=== PATIENT | female | born 1960 | race Caucasian/White ===

== ENCOUNTER 2016-12-26 16:47 | Inpatient (IN) ==
[2016-12-26] MEDS ORDERED: SODIUM CHLORIDE 0.9% 500 ML IV STA (18:06)
[2016-12-26] MEDS ORDERED: ONDANSETRON 4 MG/2 ML VIAL IV STA ×3 (18:06→18:38)
[2016-12-26 18:17] LABS: Hematocrit 26.4 VOL% (35.7-47.0); Hemoglobin 9.3 GM/DL (12.0-16.0); Immature Granulocytes % 1.4 %; Immature Granulocytes Absolute 0.01 #; Lymphocytes # 0.6 10*3/uL (1.4-4.0); Lymphocytes % 82.6 % (21.3-54.2); Mean Corpuscular HGB Conc 35.2 GM/DL (32-36); Mean Corpuscular Hemoglobin 34 PG (27-34); Mean Corpuscular Volume 97.8 FL (87-102); Monocytes % 5.8 % (1.7-12.7); Neutrophils # 0.1 10*3/uL (1.4-7.4); Neutrophils % 10.2 % (38.7-73.9); Red Cell Distribution Width 18.6 % (9.3-17.3)
[2016-12-26 18:19] LABS: INR 0.9; Platelet Count 35 T/CUMM (130-400); White Blood Count 0.7 T/CUMM (4-12)
[2016-12-26] MEDS ORDERED: MEPERIDINE 25 MG/1 ML VIAL IV STA ×2 (18:35→18:37)
[2016-12-26 18:37] LABS: Alanine Aminotransferase 26 U/L (13-56); Albumin 3.8 G/DL (3.4-5.0); Alkaline Phosphatase 152 U/L (45-117); Aspartate Amino Transferase 15 U/L (0-37); Blood Urea Nitrogen 17 MG/DL (7-18); Calcium 9.1 MG/DL (8.5-10.1); Free T4 (Free Thyroxine) 1.13 NG/DL (0.76-1.46); Glucose 87 MG/DL (74-106); Magnesium 2.2 MG/DL (1.8-2.4); Osmolality,Calculated 277.5 MOS/KG (273-304); Potassium 3.7 MMOL/L (3.5-5.1); Sodium 139 MMOL/L (136-145); Total Protein 7.5 G/DL (6.4-8.3); Troponin I Only < 0.015 NG/ML (0.00-0.045)
[2016-12-26] MEDS ORDERED: MEPERIDINE 25 MG/1 ML VIAL ONE (18:45)
[2016-12-26] MEDS ORDERED: ONDANSETRON 4 MG/2 ML VIAL ONE (18:45)
[2016-12-26 19:20] LABS: Sedimentation Rate-Westergren 105 MM/HR (0-30)
[2016-12-26 19:27] LABS: Band Neutrophils 1 % (0-10); Eosinophils 1 % (0-10); Lymphocytes 84 % (20-55); Segmented Neutrophils 10 % (50-85); Total Cells Counted 100
[2016-12-26 19:28] LABS: Platelet Estimate Decreased; Polychromasia Few
[2016-12-26 19:49] LABS: Lactic Acid 0.5 MMOL/L (0.4-2.0)
[2016-12-26] MEDS ORDERED: DEXTROSE 50% 25 GM/50 ML VIAL IV PRN (20:06)
[2016-12-26] MEDS ORDERED: GLUCAGON 1 MG VIAL IM PRN (20:06)
[2016-12-26] MEDS ORDERED: ONDANSETRON 4 MG/2 ML VIAL IV PRN (20:06)
[2016-12-26] MEDS ORDERED: FUROSEMIDE 20 MG TABLET PO PRN (20:18)
[2016-12-26] MEDS: clonazePAM 0.5 MG TABLET PO SCH (22:05)
[2016-12-26] MEDS: ACETAMINOPHEN 325 MG TABLET PO PRN (22:34)
[2016-12-26] MEDS: MEROPENEM 1,000 MG in SYRINGE 1 EACH IV SCH (22:36)
[2016-12-26] MEDS: INSULIN LISPRO 100 UNIT/ML SUBCUT SCH (22:43)
[2016-12-26 23:04] LABS: Apearance,Urine CLEAR (Clear); Bilirubin,Urine Negative (Negative); Blood, Urine Large mg/dL (Negative); Glucose,Urine (UA) >=500 mg/dL (Negative); Ketones,Urine 5 mg/dL (Negative); Nitrite,Urine Negative (Negative); Protein,Urine Negative; RBC,Urine 7 /HPF (0-4); Squamous Epithelial Cell,Urine Occasional /HPF (0-10); Urine Color Straw (Yellow); Urine Specific Gravity 1.005 (1.001-1.035); WBC,Urine <1 /HPF (0-6)
[2016-12-26 23:05] LABS: Barbiturates Screen,Urine Negative (Negative); Benzodiazepines Screen,Urine Negative (Negative); Cannabinoid Screen,Urine Negative (Negative); Opiate Screen,Urine Negative (Negative); Phencyclidine Screen,Urine Negative (Negative)
[2016-12-27] MEDS: ACETAMINOPHEN 325 MG TABLET PO PRN (03:33)
[2016-12-27 05:56] LABS: Hematocrit 23.8 VOL% (35.7-47.0); Hemoglobin 8.4 GM/DL (12.0-16.0); Immature Granulocytes % 1.3 %; Immature Granulocytes Absolute 0.01 #; Lymphocytes # 0.7 10*3/uL (1.4-4.0); Lymphocytes % 83.8 % (21.3-54.2); Mean Corpuscular HGB Conc 35.3 GM/DL (32-36); Mean Corpuscular Hemoglobin 34 PG (27-34); Mean Corpuscular Volume 97.1 FL (87-102); Mean Platelet Volume 12.1 FL (9.6-12.0); Monocytes # 0.1 10*3/uL (0.11-0.8); Monocytes % 7.5 % (1.7-12.7); Neutrophils # 0.1 10*3/uL (1.4-7.4); Neutrophils % 7.4 % (38.7-73.9); Red Blood Count 2.45 MC/CUMM (3.8-5.5); Red Cell Distribution Width 18.6 % (9.3-17.3)
[2016-12-27 05:57] LABS: Hematocrit 23.4 VOL% (35.7-47.0); Hemoglobin 8.4 GM/DL (12.0-16.0); Immature Granulocytes % 2.6 %; Immature Granulocytes Absolute 0.02 #; Lymphocytes # 0.7 10*3/uL (1.4-4.0); Lymphocytes % 83.3 % (21.3-54.2); Mean Corpuscular HGB Conc 35.9 GM/DL (32-36); Mean Corpuscular Hemoglobin 35 PG (27-34); Mean Corpuscular Volume 97.1 FL (87-102); Mean Platelet Volume 12.3 FL (9.6-12.0); Monocytes # 0.1 10*3/uL (0.11-0.8); Monocytes % 6.4 % (1.7-12.7); Neutrophils # 0.1 10*3/uL (1.4-7.4); Neutrophils % 7.7 % (38.7-73.9); Red Blood Count 2.41 MC/CUMM (3.8-5.5); Red Cell Distribution Width 18.5 % (9.3-17.3)
[2016-12-27] MEDS ORDERED: LEVOTHYROXINE 200 MCG TABLET PO SCH (06:00)
[2016-12-27 06:17] LABS: White Blood Count 0.8 T/CUMM (4-12)
[2016-12-27 06:18] LABS: Platelet Count 29 T/CUMM (130-400)
[2016-12-27] MEDS: LEVOTHYROXINE 137 MCG TABLET PO SCH (06:23)
[2016-12-27] MEDS: MEROPENEM 1,000 MG in SYRINGE 1 EACH IV SCH ×3 (06:24→21:18)
[2016-12-27 06:38] LABS: Platelet Count 28 T/CUMM (130-400); White Blood Count 0.8 T/CUMM (4-12)
[2016-12-27 06:46] LABS: Albumin 3.4 G/DL (3.4-5.0); Bilirubin,Total 0.8 MG/DL (0.2-1.0); Calcium 8.5 MG/DL (8.5-10.1); Giant Platelets Few; Hypochromasia 1+; Lymphocytes 100 % (20-55); Osmolality,Calculated 281.1 MOS/KG (273-304); Ovalocytes Slight; Platelet Estimate Decreased; Potassium 3.8 MMOL/L (3.5-5.1); Total Cells Counted 100; Total Protein 6.4 G/DL (6.4-8.3)
[2016-12-27 06:49] LABS: Giant Platelets Few; Hypochromasia 1+; Lymphocytes 90 % (20-55); Microcytosis Slight; Platelet Estimate Decreased; Segmented Neutrophils 10 % (50-85); Total Cells Counted 100
[2016-12-27] MEDS ORDERED: SODIUM CHLORIDE 0.9% 1,000 ML IV PRN (08:30)
[2016-12-27] MEDS ORDERED: GLIMEPIRIDE 4 MG TABLET PO SCH (09:00)
[2016-12-27] MEDS ORDERED: DIAZEPAM 5 MG TABLET PO ONE (09:23)
[2016-12-27] MEDS: INSULIN LISPRO 100 UNIT/ML SUBCUT SCH ×4 (09:42→22:16)
[2016-12-27] MEDS: ACETAMINOPHEN/CODEINE 120-12 MG/5 ML 12.5 ML UDCUP PO PRN ×2 (09:47→21:37)
[2016-12-27] MEDS ORDERED: HEPARIN 5,000 UNIT/1 ML VIAL ONE (10:38)
[2016-12-27] MEDS: clonazePAM 0.5 MG TABLET PO SCH (21:17)
[2016-12-28] MEDS: ACETAMINOPHEN 325 MG TABLET PO PRN (03:57)
[2016-12-28 04:30] LABS: Hematocrit 25.8 VOL% (35.7-47.0); Hemoglobin 9.2 GM/DL (12.0-16.0); Immature Granulocytes % 1.1 %; Immature Granulocytes Absolute 0.01 #; Lymphocytes # 0.8 10*3/uL (1.4-4.0); Lymphocytes % 86.2 % (21.3-54.2); Mean Corpuscular HGB Conc 35.7 GM/DL (32-36); Mean Corpuscular Hemoglobin 35 PG (27-34); Mean Corpuscular Volume 97.7 FL (87-102); Mean Platelet Volume 11.5 FL (9.6-12.0); Monocytes # 0.1 10*3/uL (0.11-0.8); Monocytes % 6.4 % (1.7-12.7); Neutrophils # 0.1 10*3/uL (1.4-7.4); Neutrophils % 6.3 % (38.7-73.9); Red Blood Count 2.64 MC/CUMM (3.8-5.5); Red Cell Distribution Width 18.5 % (9.3-17.3)
[2016-12-28 05:01] LABS: Calcium 8.6 MG/DL (8.5-10.1); Osmolality,Calculated 283.1 MOS/KG (273-304); Platelet Count 48 T/CUMM (130-400); Potassium 4.1 MMOL/L (3.5-5.1)
[2016-12-28 05:02] LABS: White Blood Count 0.9 T/CUMM (4-12)
[2016-12-28 05:08] LABS: Total Protein 6.9 G/DL (6.4-8.3)
[2016-12-28 05:37] LABS: Hypochromasia 1+; Lymphocytes 100 % (20-55); Ovalocytes Slight; Platelet Estimate Decreased; Total Cells Counted 100
[2016-12-28 05:38] LABS: Microcytosis Slight
[2016-12-28] MEDS: LEVOTHYROXINE 137 MCG TABLET PO SCH (06:04)
[2016-12-28] MEDS: MEROPENEM 1,000 MG in SYRINGE 1 EACH IV SCH ×3 (06:04→21:55)
[2016-12-28] MEDS: INSULIN LISPRO 100 UNIT/ML SUBCUT SCH ×4 (08:11→23:20)
[2016-12-28] MEDS ORDERED: BISACODYL 5 MG TABLET PO PRN (09:54)
[2016-12-28] MEDS: ACETAMINOPHEN/CODEINE 120-12 MG/5 ML 12.5 ML UDCUP PO PRN (21:46)
[2016-12-28] MEDS: clonazePAM 0.5 MG TABLET PO SCH (21:48)
[2016-12-29] MEDS: MEROPENEM 1,000 MG in SYRINGE 1 EACH IV SCH (06:17)
[2016-12-29] MEDS: LEVOTHYROXINE 137 MCG TABLET PO SCH (06:17)
[2016-12-29 06:38] LABS: Hematocrit 24.1 VOL% (35.7-47.0); Hemoglobin 8.6 GM/DL (12.0-16.0); Immature Granulocytes % 1.1 %; Immature Granulocytes Absolute 0.01 #; Lymphocytes # 0.8 10*3/uL (1.4-4.0); Lymphocytes % 89.4 % (21.3-54.2); Mean Corpuscular HGB Conc 35.7 GM/DL (32-36); Mean Corpuscular Hemoglobin 35 PG (27-34); Mean Corpuscular Volume 96.8 FL (87-102); Mean Platelet Volume 11.2 FL (9.6-12.0); Monocytes % 3.2 % (1.7-12.7); Neutrophils # 0.1 10*3/uL (1.4-7.4); Neutrophils % 6.3 % (38.7-73.9); Platelet Count 53 T/CUMM (130-400); Red Blood Count 2.49 MC/CUMM (3.8-5.5); Red Cell Distribution Width 18.3 % (9.3-17.3)
[2016-12-29 06:45] LABS: White Blood Count 0.9 T/CUMM (4-12)
[2016-12-29 07:14] LABS: Immuno Free Light Chain Kappa 2.62 MG/DL (0.33-1.94); Immuno Free Light Chain Lambda 1.86 MG/DL (0.57-2.63); Immuno Free Light Chain Ratio 1.41 MG/DL (0.26-1.65)
[2016-12-29] MEDS: INSULIN LISPRO 100 UNIT/ML SUBCUT SCH (08:09)
[2016-12-29 08:14] LABS: Lymphocytes 88 % (20-55); Total Cells Counted 100
[2016-12-29 08:15] LABS: Hypochromasia 2+; Microcytosis 2+; Platelet Estimate Decreased
[2016-12-29 08:26] LABS: Albumin (SPE) 4.2 G/DL (3.2-5.3); Alpha 1 (SPE) 0.3 G/DL (0.1-0.4); Alpha 1 (SPE) Rel % 3.9 %; Alpha 2 (SPE) 0.8 G/DL (0.4-1.0); Alpha 2 (SPE) Rel % 11.7 %; Beta (SPE) 0.8 G/DL (0.5-1.1); Beta (SPE) Rel % 12.2 %; Gamma (SPE) 0.8 G/DL (0.7-1.7); Gamma (SPE) Rel % 11.2 %; Total Protein (Chem) 6.9 G/DL (6.4-8.3)
[2016-12-29] MEDS ORDERED: NYSTATIN CREAM 15 GM TUBE TOP SCH (09:00)
[2016-12-29] MEDS ORDERED: FLUCONAZOLE 100 MG TABLET PO SCH (09:00)
[2016-12-29 11:51] LABS: Folate 10.1 NG/ML (5.4-24.0); HIV Antigen/Antibody Result Nonreactive (Nonreactive)
[2016-12-29 12:47] VITALS: BP 129/64
== END 2016-12-29 11:55 | disposition home or self-care (01) | DRG 835 ==
LOC: N.ED 16:47 → N.EDINP 18:40 → SUATTDRO 18:40 → N.4E 19:43
PROVIDERS: ADMIT Internal Medicine

== ENCOUNTER 2016-12-30 08:18 | Inpatient (IN) ==
[2016-12-30] MEDS ORDERED: BENZTROPINE 2 MG/2 ML AMP IV PRN (08:35)
[2016-12-30] MEDS ORDERED: MYLANTA/LIDO VISC 2:1 300 ML BOTTLE SWISH/SWAL PRN (08:35)
[2016-12-30] MEDS ORDERED: chlorproMAZINE INJ 50 MG in SODIUM CHLORIDE 0.9% 100 ML IV PRN (08:35)
[2016-12-30] MEDS ORDERED: ALUMINUM/MAGNES/SIMETH MAX STR 30 ML UDCUP PO PRN (08:35)
[2016-12-30] MEDS ORDERED: MYLANTA/LIDO VISC 2:1 300 ML BOTTLE SWISH/SPIT PRN (08:35)
[2016-12-30] MEDS ORDERED: LACTULOSE 20 GM/30 ML UDCUP PO PRN (08:35)
[2016-12-30] MEDS ORDERED: guaiFENesin 200 MG/10 ML UDCUP PO PRN (08:35)
[2016-12-30] MEDS ORDERED: chlorproMAZINE INJ 25 MG in SODIUM CHLORIDE 0.9% 100 ML IV PRN (08:35)
[2016-12-30] MEDS ORDERED: LOPERAMIDE 2 MG CAPSULE PO PRN ×2 (08:35)
[2016-12-30] MEDS ORDERED: ALPRAZolam 0.25 MG TABLET PO PRN (08:35)
[2016-12-30] MEDS ORDERED: MAGNESIUM HYDROXIDE SUSP 30 ML UDCUP PO PRN (08:35)
[2016-12-30] MEDS ORDERED: diphenhydrAMINE CAP 25 MG CAPSULE PO PRN (08:35)
[2016-12-30] MEDS ORDERED: chlorproMAZINE 25 MG TABLET PO PRN (08:35)
[2016-12-30] MEDS ORDERED: TEMAZEPAM 7.5 MG CAPSULE PO PRN (08:35)
[2016-12-30 09:14] LABS: Hematocrit 23.3 VOL% (35.7-47.0); Hemoglobin 8.3 GM/DL (12.0-16.0); Immature Granulocytes % 1.6 %; Immature Granulocytes Absolute 0.01 #; Lymphocytes # 0.5 10*3/uL (1.4-4.0); Lymphocytes % 78.1 % (21.3-54.2); Mean Corpuscular HGB Conc 35.6 GM/DL (32-36); Mean Corpuscular Hemoglobin 35 PG (27-34); Mean Corpuscular Volume 97.9 FL (87-102); Monocytes # 0.1 10*3/uL (0.11-0.8); Monocytes % 10.9 % (1.7-12.7); Neutrophils # 0.1 10*3/uL (1.4-7.4); Neutrophils % 9.4 % (38.7-73.9); Platelet Count 48 T/CUMM (130-400); Red Blood Count 2.38 MC/CUMM (3.8-5.5); Red Cell Distribution Width 18.3 % (9.3-17.3)
[2016-12-30 09:35] LABS: White Blood Count 0.6 T/CUMM (4-12)
[2016-12-30 09:36] LABS: Fibrinogen Quant Value 204 MG% (200-400); INR 1.1; PT Patient Result 11.4 SECS; Partial Thromboplastin Time 25.8 SECS (0-40)
[2016-12-30 09:40] LABS: Lymphocytes 82 % (20-55); Nucleated Red Blood Cells 4 (0-5); Segmented Neutrophils 14 % (50-85); Total Cells Counted 100
[2016-12-30 09:42] LABS: Platelet Estimate Decreased
[2016-12-30 09:43] LABS: Macrocytosis 1+
[2016-12-30 10:03] LABS: Albumin 3.9 G/DL (3.4-5.0); Bilirubin,Total 0.6 MG/DL (0.2-1.0); Osmolality,Calculated 278.8 MOS/KG (273-304); Total Protein 7.4 G/DL (6.4-8.3); Uric Acid 3.3 MG/DL (2.6-6.0)
[2016-12-30] MEDS ORDERED: PALONOSETRON 0.25 MG/5 ML VIAL IV ONE (10:04)
[2016-12-30] MEDS ORDERED: FUROSEMIDE 20 MG TABLET PO PRN (10:07)
[2016-12-30] MEDS: DEXAMETHASONE IV SCH (11:40)
[2016-12-30] MEDS: SODIUM CHLORIDE 0.9% IV SCH (11:40)
[2016-12-30] MEDS: TRETINOIN 10 MG CAPSULE PO SCH ×2 (11:40→20:36)
[2016-12-30] MEDS: DEXTROSE 5% IV SCH (13:04)
[2016-12-30] MEDS: ARSENIC TRIOXIDE IV SCH (13:04)
[2016-12-30 16:15] LABS: Apearance,Urine CLEAR (Clear); Bilirubin,Urine Negative (Negative); Blood, Urine Moderate mg/dL (Negative); Glucose,Urine (UA) >=500 mg/dL (Negative); Ketones,Urine Negative (Negative); Mucus,Urine Occasional /LPF (Occasional); Nitrite,Urine Negative (Negative); Protein,Urine Negative; RBC,Urine 31 /HPF (0-4); Squamous Epithelial Cell,Urine Occasional /HPF (0-10); Urine Color Straw (Yellow); Urine Specific Gravity 1.005 (1.001-1.035); Urine Urobilinogen < 2.0 EU/DL (0.2-1.0); WBC,Urine 1 /HPF (0-6)
[2016-12-30] MEDS: LEVOFLOXACIN 500 MG TABLET PO SCH (17:30)
[2016-12-30] MEDS: FLUCONAZOLE 100 MG TABLET PO SCH (17:31)
[2016-12-30] MEDS: ESZOPICLONE 3 MG PO SCH (20:31)
[2016-12-30] MEDS: clonazePAM 0.5 MG TABLET PO SCH (20:31)
[2016-12-30] MEDS: ZALEPLON 5 MG CAPSULE PO SCH (20:32)
[2016-12-31] MEDS: ACETAMINOPHEN 325 MG TABLET PO PRN (01:19)
[2016-12-31] MEDS: ONDANSETRON 4 MG/2 ML VIAL IV PRN ×3 (01:41→18:21)
[2016-12-31] MEDS: PROMETHAZINE INJ 25 MG in SODIUM CHLORIDE 0.9% 50 ML IV PRN ×2 (01:56→19:40)
[2016-12-31] MEDS: traMADol 50 MG TABLET PO PRN ×3 (02:03→16:52)
[2016-12-31 03:24] LABS: Hematocrit 24.9 VOL% (35.7-47.0); Immature Granulocytes % 4.5 %; Immature Granulocytes Absolute 0.05 #; Lymphocytes # 0.9 10*3/uL (1.4-4.0); Lymphocytes % 76.6 % (21.3-54.2); Mean Corpuscular HGB Conc 36.1 GM/DL (32-36); Mean Corpuscular Hemoglobin 35 PG (27-34); Mean Corpuscular Volume 96.5 FL (87-102); Mean Platelet Volume 11.7 FL (9.6-12.0); Monocytes # 0.1 10*3/uL (0.11-0.8); Monocytes % 8.1 % (1.7-12.7); NRBC # 0.02 10*3/uL; Neutrophils # 0.1 10*3/uL (1.4-7.4); Neutrophils % 10.8 % (38.7-73.9); Red Blood Count 2.58 MC/CUMM (3.8-5.5); White Blood Count 1.1 T/CUMM (4-12)
[2016-12-31 03:27] LABS: Platelet Count 41 T/CUMM (130-400)
[2016-12-31 03:47] LABS: Calcium 9.1 MG/DL (8.5-10.1); Potassium 3.9 MMOL/L (3.5-5.1)
[2016-12-31 05:31] LABS: Lymphocytes 70 % (20-55); Platelet Estimate Decreased; Segmented Neutrophils 30 % (50-85); Total Cells Counted 100
[2016-12-31] MEDS: DEXAMETHASONE IV SCH (08:28)
[2016-12-31] MEDS: LEVOFLOXACIN 500 MG TABLET PO SCH (08:28)
[2016-12-31] MEDS: LEVOTHYROXINE 137 MCG TABLET PO SCH (08:28)
[2016-12-31] MEDS: SODIUM CHLORIDE 0.9% IV SCH (08:28)
[2016-12-31] MEDS: FLUCONAZOLE 100 MG TABLET PO SCH (08:28)
[2016-12-31] MEDS ORDERED: FOSAPREPITANT 150 MG in SODIUM CHLORIDE 0.9% 100 ML IV ONE (09:09)
[2016-12-31] MEDS ORDERED: SODIUM CHLORIDE 0.9% 1,000 ML IV PRN (09:14)
[2016-12-31] MEDS: SODIUM CHLORIDE 0.45% 1,000 ML IV SCH (10:54)
[2016-12-31] MEDS: TRETINOIN 10 MG CAPSULE PO SCH ×2 (10:54→21:04)
[2016-12-31] MEDS: DEXTROSE 5% IV SCH ×2 (11:09→11:42)
[2016-12-31] MEDS: ARSENIC TRIOXIDE IV SCH ×2 (11:09→11:42)
[2016-12-31] MEDS: clonazePAM 0.5 MG TABLET PO SCH (21:02)
[2016-12-31] MEDS: ESZOPICLONE 3 MG PO SCH (21:03)
[2016-12-31] MEDS: ZALEPLON 5 MG CAPSULE PO SCH (21:07)
[2017-01-01 08:11] LABS: Hematocrit 22.7 VOL% (35.7-47.0); Hemoglobin 8.2 GM/DL (12.0-16.0); Immature Granulocytes % 9.8 %; Immature Granulocytes Absolute 0.08 #; Lymphocytes # 0.5 10*3/uL (1.4-4.0); Lymphocytes % 59.8 % (21.3-54.2); Mean Corpuscular HGB Conc 36.1 GM/DL (32-36); Mean Corpuscular Hemoglobin 35 PG (27-34); Mean Platelet Volume 10.8 FL (9.6-12.0); Monocytes # 0.1 10*3/uL (0.11-0.8); Monocytes % 13.4 % (1.7-12.7); NRBC # 0.04 10*3/uL; Neutrophils # 0.1 10*3/uL (1.4-7.4); Platelet Count 62 T/CUMM (130-400); Red Cell Distribution Width 18.5 % (9.3-17.3); White Blood Count 0.8 T/CUMM (4-12)
[2017-01-01 08:18] LABS: Red Blood Count 2.34 MC/CUMM (3.8-5.5)
[2017-01-01 08:43] LABS: Albumin 3.7 G/DL (3.4-5.0); Bilirubin,Total 0.9 MG/DL (0.2-1.0); Calcium 9.1 MG/DL (8.5-10.1); Magnesium 2.1 MG/DL (1.8-2.4); Osmolality,Calculated 279.7 MOS/KG (273-304); Potassium 3.9 MMOL/L (3.5-5.1); Total Protein 7.2 G/DL (6.4-8.3)
[2017-01-01 08:53] LABS: Hypochromasia 1+; Lymphocytes 80 % (20-55); Platelet Estimate Decreased; Total Cells Counted 100
[2017-01-01 08:54] LABS: Microcytosis Slight
[2017-01-01] MEDS: traMADol 50 MG TABLET PO PRN (09:40)
[2017-01-01] MEDS: LEVOTHYROXINE 137 MCG TABLET PO SCH (09:41)
[2017-01-01] MEDS: LEVOFLOXACIN 500 MG TABLET PO SCH (09:41)
[2017-01-01] MEDS: FLUCONAZOLE 100 MG TABLET PO SCH (09:41)
[2017-01-01] MEDS: TRETINOIN 10 MG CAPSULE PO SCH ×2 (09:41→21:00)
[2017-01-01] MEDS: SODIUM CHLORIDE 0.9% IV SCH (09:42)
[2017-01-01] MEDS: DEXAMETHASONE IV SCH (09:42)
[2017-01-01] MEDS ORDERED: PALONOSETRON 0.25 MG/5 ML VIAL IV ONE (10:11)
[2017-01-01] MEDS: SODIUM CHLORIDE 0.45% 1,000 ML IV SCH (10:16)
[2017-01-01] MEDS: ARSENIC TRIOXIDE IV SCH (10:43)
[2017-01-01] MEDS: DEXTROSE 5% IV SCH (10:43)
[2017-01-01] MEDS: ZALEPLON 5 MG CAPSULE PO SCH (20:58)
[2017-01-01] MEDS: BISACODYL 5 MG TABLET PO PRN (20:58)
[2017-01-01] MEDS: clonazePAM 0.5 MG TABLET PO SCH (20:59)
[2017-01-01] MEDS: ESZOPICLONE 3 MG PO SCH (20:59)
[2017-01-02 04:43] LABS: Hematocrit 22.4 VOL% (35.7-47.0); Hemoglobin 7.9 GM/DL (12.0-16.0); Immature Granulocytes % 1.1 %; Immature Granulocytes Absolute 0.02 #; Lymphocytes # 0.7 10*3/uL (1.4-4.0); Lymphocytes % 37.2 % (21.3-54.2); Mean Corpuscular HGB Conc 35.3 GM/DL (32-36); Mean Corpuscular Hemoglobin 35 PG (27-34); Mean Corpuscular Volume 98.2 FL (87-102); Mean Platelet Volume 10.8 FL (9.6-12.0); Monocytes # 0.3 10*3/uL (0.11-0.8); Monocytes % 14.4 % (1.7-12.7); NRBC # 0.11 10*3/uL; Neutrophils # 0.9 10*3/uL (1.4-7.4); Neutrophils % 47.3 % (38.7-73.9); Platelet Count 46 T/CUMM (130-400); Red Blood Count 2.28 MC/CUMM (3.8-5.5); Red Cell Distribution Width 18.6 % (9.3-17.3); White Blood Count 1.8 T/CUMM (4-12)
[2017-01-02 05:12] LABS: Band Neutrophils 10 % (0-10); Lymphocytes 30 % (20-55); Metamyelocytes 20 %; Myelocytes 20 %; Nucleated Red Blood Cells 1 (0-5); Segmented Neutrophils 10 % (50-85); Total Cells Counted 100
[2017-01-02 05:13] LABS: Anisocytosis 1+; Platelet Estimate Decreased
[2017-01-02] MEDS: LEVOTHYROXINE 137 MCG TABLET PO SCH (06:44)
[2017-01-02] MEDS ORDERED: SODIUM CHLORIDE 0.9% 1,000 ML IV PRN (07:50)
[2017-01-02] MEDS ORDERED: ARSENIC TRIOXIDE IV SCH (09:00)
[2017-01-02] MEDS ORDERED: DEXTROSE 5% IV SCH (09:00)
[2017-01-02] MEDS: SODIUM CHLORIDE 0.45% 1,000 ML IV SCH (09:53)
[2017-01-02] MEDS: FLUCONAZOLE 100 MG TABLET PO SCH (09:54)
[2017-01-02] MEDS: LEVOFLOXACIN 500 MG TABLET PO SCH (09:54)
[2017-01-02] MEDS: TRETINOIN 10 MG CAPSULE PO SCH ×2 (09:54→21:26)
[2017-01-02] MEDS: BISACODYL 5 MG TABLET PO PRN (09:55)
[2017-01-02] MEDS: POLYETHYLENE GLYCOL POWDER 17 GM PACK PO SCH (09:55)
[2017-01-02] MEDS: SODIUM CHLORIDE 0.9% IV SCH (09:55)
[2017-01-02] MEDS: DEXAMETHASONE IV SCH (09:55)
[2017-01-02] MEDS: ESZOPICLONE 3 MG PO SCH (21:23)
[2017-01-02] MEDS: ZALEPLON 5 MG CAPSULE PO SCH (21:26)
[2017-01-02] MEDS: clonazePAM 0.5 MG TABLET PO SCH (21:30)
[2017-01-03 05:30] LABS: Basophils % 0.2 % (0.0-0.8); Hematocrit 27.4 VOL% (35.7-47.0); Hemoglobin 9.8 GM/DL (12.0-16.0); Immature Granulocytes % 8.2 %; Immature Granulocytes Absolute 0.48 #; Lymphocytes # 1.1 10*3/uL (1.4-4.0); Mean Corpuscular HGB Conc 35.8 GM/DL (32-36); Mean Corpuscular Hemoglobin 34 PG (27-34); Mean Corpuscular Volume 94.5 FL (87-102); Mean Platelet Volume 11.8 FL (9.6-12.0); Monocytes # 0.2 10*3/uL (0.11-0.8); Monocytes % 3.3 % (1.7-12.7); NRBC # 0.27 10*3/uL; Neutrophils # 4.1 10*3/uL (1.4-7.4); Neutrophils % 69.3 % (38.7-73.9); Red Cell Distribution Width 18.6 % (9.3-17.3); White Blood Count 5.8 T/CUMM (4-12)
[2017-01-03 05:42] LABS: Platelet Count 35 T/CUMM (130-400)
[2017-01-03 05:50] LABS: Albumin 3.3 G/DL (3.4-5.0); Bilirubin,Total 0.4 MG/DL (0.2-1.0); Calcium 8.2 MG/DL (8.5-10.1); Potassium 3.8 MMOL/L (3.5-5.1); Total Protein 6.3 G/DL (6.4-8.3)
[2017-01-03] MEDS: LEVOTHYROXINE 137 MCG TABLET PO SCH (06:39)
[2017-01-03 07:01] LABS: Lymphocytes 36 % (20-55); Metamyelocytes 1 %; Myelocytes 16 %; Nucleated Red Blood Cells 5 (0-5); Promyelocytes 4 %; Segmented Neutrophils 9 % (50-85); Total Cells Counted 100
[2017-01-03 07:03] LABS: Hypochromasia 1+; Platelet Estimate Decreased
[2017-01-03] MEDS ORDERED: FUROSEMIDE 20 MG/2 ML VIAL IV ONE (08:05)
[2017-01-03] MEDS: SODIUM CHLORIDE 0.9% IV SCH (10:02)
[2017-01-03] MEDS: DEXAMETHASONE IV SCH (10:02)
[2017-01-03] MEDS: LEVOFLOXACIN 500 MG TABLET PO SCH (10:03)
[2017-01-03] MEDS: TRETINOIN 10 MG CAPSULE PO SCH ×2 (10:03→21:44)
[2017-01-03] MEDS: BISACODYL 5 MG TABLET PO PRN (10:03)
[2017-01-03] MEDS: POLYETHYLENE GLYCOL POWDER 17 GM PACK PO SCH (10:03)
[2017-01-03] MEDS: SODIUM CHLORIDE 0.45% 1,000 ML IV SCH (10:04)
[2017-01-03] MEDS: FLUCONAZOLE 100 MG TABLET PO SCH (10:04)
[2017-01-03] MEDS: DEXTROSE 5% IV SCH (13:57)
[2017-01-03] MEDS: ARSENIC TRIOXIDE IV SCH (13:57)
[2017-01-03] MEDS: ESZOPICLONE 3 MG PO SCH (21:42)
[2017-01-03] MEDS: clonazePAM 0.5 MG TABLET PO SCH (21:43)
[2017-01-03] MEDS: ZALEPLON 5 MG CAPSULE PO SCH (21:47)
[2017-01-04 04:45] LABS: Basophils # 0.1 10*3/uL (0.0-0.2); Basophils % 0.3 % (0.0-0.8); Hematocrit 28.5 VOL% (35.7-47.0); Hemoglobin 10.3 GM/DL (12.0-16.0); Immature Granulocytes % 9.8 %; Immature Granulocytes Absolute 1.66 #; Lymphocytes # 1.8 10*3/uL (1.4-4.0); Lymphocytes % 10.9 % (21.3-54.2); Mean Corpuscular HGB Conc 36.1 GM/DL (32-36); Mean Corpuscular Hemoglobin 34 PG (27-34); Mean Corpuscular Volume 94.7 FL (87-102); Monocytes # 0.5 10*3/uL (0.11-0.8); Neutrophils # 12.8 10*3/uL (1.4-7.4); Platelet Count 41 T/CUMM (130-400); Red Blood Count 3.01 MC/CUMM (3.8-5.5); Red Cell Distribution Width 18.7 % (9.3-17.3); White Blood Count 16.9 T/CUMM (4-12)
[2017-01-04 05:12] LABS: Calcium 8.3 MG/DL (8.5-10.1); Osmolality,Calculated 287.7 MOS/KG (273-304); Potassium 3.7 MMOL/L (3.5-5.1)
[2017-01-04 06:46] LABS: Band Neutrophils 3 % (0-10); Lymphocytes 53 % (20-55); Metamyelocytes 4 %; Myelocytes 17 %; Nucleated Red Blood Cells 4 (0-5); Promyelocytes 8 %; Segmented Neutrophils 3 % (50-85); Total Cells Counted 100
[2017-01-04 06:47] LABS: Platelet Estimate Decreased
[2017-01-04] MEDS ORDERED: FUROSEMIDE 20 MG/2 ML VIAL IV ONE (08:15)
[2017-01-04] MEDS: FLUCONAZOLE 100 MG TABLET PO SCH (10:12)
[2017-01-04] MEDS: LEVOTHYROXINE 137 MCG TABLET PO SCH (10:12)
[2017-01-04] MEDS: LEVOFLOXACIN 500 MG TABLET PO SCH (10:12)
[2017-01-04] MEDS: SODIUM CHLORIDE 0.45% 1,000 ML IV SCH (10:12)
[2017-01-04] MEDS: FOLIC ACID 1 MG TABLET PO SCH (10:13)
[2017-01-04] MEDS: TRETINOIN 10 MG CAPSULE PO SCH ×2 (10:13→20:56)
[2017-01-04] MEDS: POLYETHYLENE GLYCOL POWDER 17 GM PACK PO SCH (10:13)
[2017-01-04] MEDS: ARSENIC TRIOXIDE IV SCH (13:38)
[2017-01-04] MEDS: DEXTROSE 5% IV SCH (13:38)
[2017-01-04] MEDS: ESZOPICLONE 3 MG PO SCH (20:53)
[2017-01-04] MEDS: clonazePAM 0.5 MG TABLET PO SCH (20:55)
[2017-01-04] MEDS: ZALEPLON 5 MG CAPSULE PO SCH (20:55)
[2017-01-05] MEDS: ACETAMINOPHEN 325 MG TABLET PO PRN (03:13)
[2017-01-05 04:34] LABS: Basophils # 0.1 10*3/uL (0.0-0.2); Basophils % 0.4 % (0.0-0.8); Hematocrit 30.8 VOL% (35.7-47.0); Hemoglobin 10.7 GM/DL (12.0-16.0); Immature Granulocytes % 7.3 %; Lymphocytes # 3.6 10*3/uL (1.4-4.0); Lymphocytes % 11.5 % (21.3-54.2); Mean Corpuscular HGB Conc 34.7 GM/DL (32-36); Mean Corpuscular Hemoglobin 33 PG (27-34); Mean Corpuscular Volume 95.7 FL (87-102); Mean Platelet Volume 10.9 FL (9.6-12.0); Monocytes # 1.2 10*3/uL (0.11-0.8); Monocytes % 3.7 % (1.7-12.7); Neutrophils # 24.2 10*3/uL (1.4-7.4); Neutrophils % 77.1 % (38.7-73.9); Platelet Count 46 T/CUMM (130-400); Red Blood Count 3.22 MC/CUMM (3.8-5.5); Red Cell Distribution Width 19.1 % (9.3-17.3); White Blood Count 31.3 T/CUMM (4-12)
[2017-01-05 05:33] LABS: Albumin 3.3 G/DL (3.4-5.0); Calcium 8.4 MG/DL (8.5-10.1); Magnesium 2.1 MG/DL (1.8-2.4); Osmolality,Calculated 287.4 MOS/KG (273-304); Potassium 3.7 MMOL/L (3.5-5.1); Total Protein 6.4 G/DL (6.4-8.3)
[2017-01-05] MEDS: LEVOTHYROXINE 137 MCG TABLET PO SCH (06:17)
[2017-01-05] MEDS: SODIUM CHLORIDE 0.45% 1,000 ML IV SCH (06:18)
[2017-01-05 08:42] LABS: Band Neutrophils 2 % (0-10); Lymphocytes 25 % (20-55); Metamyelocytes 1 %; Myelocytes 30 %; Nucleated Red Blood Cells 1 (0-5); Segmented Neutrophils 7 % (50-85); Total Cells Counted 100
[2017-01-05 08:44] LABS: Hypochromasia 1+; Platelet Estimate Decreased
[2017-01-05] MEDS: FOLIC ACID 1 MG TABLET PO SCH (10:07)
[2017-01-05] MEDS: FLUCONAZOLE 100 MG TABLET PO SCH (10:08)
[2017-01-05] MEDS: LEVOFLOXACIN 500 MG TABLET PO SCH (10:08)
[2017-01-05] MEDS: POLYETHYLENE GLYCOL POWDER 17 GM PACK PO SCH (10:08)
[2017-01-05] MEDS: TRETINOIN 10 MG CAPSULE PO SCH ×2 (10:08→22:22)
[2017-01-05] MEDS: ARSENIC TRIOXIDE IV SCH (13:12)
[2017-01-05] MEDS: DEXTROSE 5% IV SCH (13:12)
[2017-01-05] MEDS ORDERED: DOXEPIN 25 MG CAPSULE PO SCH (21:00)
[2017-01-05] MEDS: ZALEPLON 5 MG CAPSULE PO SCH (22:23)
[2017-01-05] MEDS: clonazePAM 0.5 MG TABLET PO SCH (22:23)
[2017-01-05] MEDS: ESZOPICLONE 3 MG PO SCH (22:24)
[2017-01-06] MEDS: SODIUM CHLORIDE 0.45% 1,000 ML IV SCH (03:18)
[2017-01-06 03:21] LABS: Basophils # 0.2 10*3/uL (0.0-0.2); Basophils % 0.5 % (0.0-0.8); Hemoglobin 9.7 GM/DL (12.0-16.0); Immature Granulocytes % 9.8 %; Lymphocytes # 4.7 10*3/uL (1.4-4.0); Lymphocytes % 11.3 % (21.3-54.2); Mean Corpuscular HGB Conc 34.6 GM/DL (32-36); Mean Corpuscular Hemoglobin 33 PG (27-34); Mean Corpuscular Volume 96.6 FL (87-102); Mean Platelet Volume 10.3 FL (9.6-12.0); Monocytes # 0.8 10*3/uL (0.11-0.8); NRBC # 0.17 10*3/uL; Neutrophils % 76.4 % (38.7-73.9); Platelet Count 39 T/CUMM (130-400); Red Cell Distribution Width 19.1 % (9.3-17.3)
[2017-01-06 03:32] LABS: White Blood Count 41.8 T/CUMM (4-12)
[2017-01-06 03:55] LABS: Calcium 7.9 MG/DL (8.5-10.1); Magnesium 1.9 MG/DL (1.8-2.4); Osmolality,Calculated 284.8 MOS/KG (273-304); Potassium 3.5 MMOL/L (3.5-5.1)
[2017-01-06] MEDS: LEVOTHYROXINE 137 MCG TABLET PO SCH (06:33)
[2017-01-06 07:07] LABS: Band Neutrophils 3 % (0-10); Lymphocytes 40 % (20-55); Myelocytes 28 %; Nucleated Red Blood Cells 1 (0-5); Segmented Neutrophils 7 % (50-85); Total Cells Counted 100
[2017-01-06 07:08] LABS: Platelet Estimate Decreased
[2017-01-06 07:10] LABS: Hypochromasia 1+
[2017-01-06] MEDS: POLYETHYLENE GLYCOL POWDER 17 GM PACK PO SCH (08:22)
[2017-01-06] MEDS: LEVOFLOXACIN 500 MG TABLET PO SCH (08:22)
[2017-01-06] MEDS: BISACODYL 5 MG TABLET PO PRN (08:23)
[2017-01-06] MEDS: TRETINOIN 10 MG CAPSULE PO SCH ×2 (08:23→22:34)
[2017-01-06] MEDS: FLUCONAZOLE 100 MG TABLET PO SCH (08:23)
[2017-01-06] MEDS: FOLIC ACID 1 MG TABLET PO SCH (08:23)
[2017-01-06] MEDS: ARSENIC TRIOXIDE IV SCH (11:18)
[2017-01-06] MEDS: DEXTROSE 5% IV SCH (11:18)
[2017-01-06] MEDS: clonazePAM 0.5 MG TABLET PO SCH (21:59)
[2017-01-06] MEDS: DOXEPIN 25 MG CAPSULE PO SCH (22:04)
[2017-01-07] MEDS: ESZOPICLONE 3 MG PO SCH ×2 (00:53→22:12)
[2017-01-07] MEDS: ZALEPLON 5 MG CAPSULE PO SCH ×2 (00:54→21:00)
[2017-01-07] MEDS: SODIUM CHLORIDE 0.45% 1,000 ML IV SCH ×3 (02:22→22:12)
[2017-01-07 06:15] LABS: Basophils # 0.1 10*3/uL (0.0-0.2); Basophils % 0.1 % (0.0-0.8); Hematocrit 28.5 VOL% (35.7-47.0); Hemoglobin 9.7 GM/DL (12.0-16.0); Immature Granulocytes % 15.8 %; Immature Granulocytes Absolute 8.61 #; Lymphocytes # 4.8 10*3/uL (1.4-4.0); Lymphocytes % 8.8 % (21.3-54.2); Mean Corpuscular Hemoglobin 33 PG (27-34); Mean Corpuscular Volume 97.3 FL (87-102); Mean Platelet Volume 10.7 FL (9.6-12.0); Monocytes # 0.8 10*3/uL (0.11-0.8); Monocytes % 1.5 % (1.7-12.7); Neutrophils # 40.2 10*3/uL (1.4-7.4); Neutrophils % 73.8 % (38.7-73.9); Red Blood Count 2.93 MC/CUMM (3.8-5.5); Red Cell Distribution Width 19.7 % (9.3-17.3)
[2017-01-07 06:21] LABS: Platelet Count 36 T/CUMM (130-400); White Blood Count 54.4 T/CUMM (4-12)
[2017-01-07 06:33] LABS: Calcium 8.2 MG/DL (8.5-10.1); Magnesium 2.1 MG/DL (1.8-2.4); Osmolality,Calculated 287.4 MOS/KG (273-304); Potassium 3.8 MMOL/L (3.5-5.1)
[2017-01-07] MEDS: LEVOTHYROXINE 137 MCG TABLET PO SCH (06:40)
[2017-01-07 07:02] LABS: Anisocytosis 2+; Band Neutrophils 4 % (0-10); Lymphocytes 7 % (20-55); Macrocytosis 1+; Metamyelocytes 17 %; Microcytosis 1+; Myelocytes 6 %; Platelet Estimate Decreased; Segmented Neutrophils 54 % (50-85); Total Cells Counted 100
[2017-01-07] MEDS: FOLIC ACID 1 MG TABLET PO SCH (08:42)
[2017-01-07] MEDS: LEVOFLOXACIN 500 MG TABLET PO SCH (08:42)
[2017-01-07] MEDS: FLUCONAZOLE 100 MG TABLET PO SCH (08:42)
[2017-01-07] MEDS: TRETINOIN 10 MG CAPSULE PO SCH ×2 (08:42→21:25)
[2017-01-07] MEDS: POLYETHYLENE GLYCOL POWDER 17 GM PACK PO SCH (08:42)
[2017-01-07] MEDS: ARSENIC TRIOXIDE IV SCH (10:16)
[2017-01-07] MEDS: DEXTROSE 5% IV SCH (10:16)
[2017-01-07] MEDS: DOXEPIN 25 MG CAPSULE PO SCH (20:48)
[2017-01-07] MEDS: clonazePAM 0.5 MG TABLET PO SCH (20:48)
[2017-01-08] MEDS: SODIUM CHLORIDE 0.45% 1,000 ML IV SCH (04:34)
[2017-01-08 05:52] LABS: Basophils # 0.2 10*3/uL (0.0-0.2); Basophils % 0.3 % (0.0-0.8); Hemoglobin 9.7 GM/DL (12.0-16.0); Immature Granulocytes % 13.8 %; Immature Granulocytes Absolute 9.47 #; Lymphocytes # 4.8 10*3/uL (1.4-4.0); Mean Corpuscular HGB Conc 34.6 GM/DL (32-36); Mean Corpuscular Hemoglobin 34 PG (27-34); Mean Corpuscular Volume 97.9 FL (87-102); Mean Platelet Volume 12.3 FL (9.6-12.0); Monocytes # 2.2 10*3/uL (0.11-0.8); Monocytes % 3.3 % (1.7-12.7); NRBC # 0.08 10*3/uL; Neutrophils # 51.8 10*3/uL (1.4-7.4); Neutrophils % 75.6 % (38.7-73.9); Platelet Count 28 T/CUMM (130-400); Red Blood Count 2.86 MC/CUMM (3.8-5.5); Red Cell Distribution Width 19.7 % (9.3-17.3)
[2017-01-08 05:59] LABS: White Blood Count 68.6 T/CUMM (4-12)
[2017-01-08 06:15] LABS: Calcium 8.1 MG/DL (8.5-10.1); Magnesium 2.1 MG/DL (1.8-2.4); Osmolality,Calculated 283.5 MOS/KG (273-304); Potassium 4.1 MMOL/L (3.5-5.1)
[2017-01-08 06:42] LABS: Band Neutrophils 5 % (0-10); Hypochromasia 1+; Lymphocytes 29 % (20-55); Metamyelocytes 9 %; Microcytosis 1+; Myelocytes 12 %; Platelet Estimate Decreased; Segmented Neutrophils 12 % (50-85); Total Cells Counted 100
[2017-01-08] MEDS: LEVOTHYROXINE 137 MCG TABLET PO SCH (06:51)
[2017-01-08] MEDS ORDERED: FUROSEMIDE 20 MG/2 ML VIAL IV ONE ×2 (07:55→16:00)
[2017-01-08] MEDS ORDERED: SODIUM CHLORIDE 0.9% 1,000 ML IV PRN (08:01)
[2017-01-08] MEDS: FLUCONAZOLE 100 MG TABLET PO SCH (10:19)
[2017-01-08] MEDS: FOLIC ACID 1 MG TABLET PO SCH (10:19)
[2017-01-08] MEDS: LEVOFLOXACIN 500 MG TABLET PO SCH (10:19)
[2017-01-08] MEDS: POLYETHYLENE GLYCOL POWDER 17 GM PACK PO SCH (10:20)
[2017-01-08] MEDS: KETOROLAC 10 MG TABLET PO PRN ×2 (11:35→21:06)
[2017-01-08] MEDS: TRETINOIN 10 MG CAPSULE PO SCH ×2 (11:36→21:14)
[2017-01-08] MEDS: DEXTROSE 5% IV SCH (11:37)
[2017-01-08] MEDS: ARSENIC TRIOXIDE IV SCH (11:37)
[2017-01-08] MEDS: DOXEPIN 25 MG CAPSULE PO SCH (21:07)
[2017-01-08] MEDS: clonazePAM 0.5 MG TABLET PO SCH (21:07)
[2017-01-08] MEDS: ZALEPLON 5 MG CAPSULE PO SCH (21:11)
[2017-01-08] MEDS: ESZOPICLONE 3 MG PO SCH (21:11)
[2017-01-09] MEDS: SODIUM CHLORIDE 0.45% 1,000 ML IV SCH ×3 (04:03→18:03)
[2017-01-09 05:23] LABS: Basophils # 0.2 10*3/uL (0.0-0.2); Basophils % 0.3 % (0.0-0.8); Hematocrit 26.4 VOL% (35.7-47.0); Hemoglobin 9.2 GM/DL (12.0-16.0); Immature Granulocytes % 21.5 %; Immature Granulocytes Absolute 15.57 #; Lymphocytes # 4.4 10*3/uL (1.4-4.0); Lymphocytes % 6.1 % (21.3-54.2); Mean Corpuscular HGB Conc 34.8 GM/DL (32-36); Mean Corpuscular Hemoglobin 34 PG (27-34); Mean Corpuscular Volume 98.5 FL (87-102); Mean Platelet Volume 10.4 FL (9.6-12.0); Monocytes # 1.4 10*3/uL (0.11-0.8); Monocytes % 1.9 % (1.7-12.7); NRBC # 0.06 10*3/uL; Neutrophils # 50.7 10*3/uL (1.4-7.4); Neutrophils % 70.2 % (38.7-73.9); Platelet Count 52 T/CUMM (130-400); Red Blood Count 2.68 MC/CUMM (3.8-5.5); Red Cell Distribution Width 19.9 % (9.3-17.3)
[2017-01-09 05:32] LABS: White Blood Count 72.4 T/CUMM (4-12)
[2017-01-09 05:56] LABS: Albumin 2.9 G/DL (3.4-5.0); Band Neutrophils 16 % (0-10); Bilirubin,Total 0.4 MG/DL (0.2-1.0); Calcium 7.9 MG/DL (8.5-10.1); Lymphocytes 12 % (20-55); Magnesium 2.3 MG/DL (1.8-2.4); Metamyelocytes 9 %; Myelocytes 9 %; Osmolality,Calculated 287.4 MOS/KG (273-304); Potassium 4.1 MMOL/L (3.5-5.1); Segmented Neutrophils 38 % (50-85); Total Cells Counted 100; Total Protein 5.7 G/DL (6.4-8.3)
[2017-01-09 05:57] LABS: Hypochromasia Slight; Ovalocytes Slight; Platelet Estimate Decreased
[2017-01-09 05:58] LABS: Microcytosis 1+
[2017-01-09] MEDS: LEVOTHYROXINE 137 MCG TABLET PO SCH (06:39)
[2017-01-09] MEDS: TRETINOIN 10 MG CAPSULE PO SCH ×2 (10:39→20:15)
[2017-01-09] MEDS: FUROSEMIDE 20 MG TABLET PO SCH (10:40)
[2017-01-09] MEDS: BISACODYL 5 MG TABLET PO PRN (10:40)
[2017-01-09] MEDS: POLYETHYLENE GLYCOL POWDER 17 GM PACK PO SCH (10:40)
[2017-01-09] MEDS: FOLIC ACID 1 MG TABLET PO SCH (10:40)
[2017-01-09] MEDS: PANTOPRAZOLE 40 MG TABLET PO SCH (10:41)
[2017-01-09] MEDS: KETOROLAC 10 MG TABLET PO PRN (13:19)
[2017-01-09] MEDS: ARSENIC TRIOXIDE IV SCH (13:20)
[2017-01-09] MEDS: DEXTROSE 5% IV SCH (13:20)
[2017-01-09] MEDS: DOXEPIN 25 MG CAPSULE PO SCH (20:14)
[2017-01-09] MEDS: clonazePAM 0.5 MG TABLET PO SCH (20:14)
[2017-01-09] MEDS: ZALEPLON 5 MG CAPSULE PO SCH (20:15)
[2017-01-09] MEDS: ESZOPICLONE 3 MG PO SCH (20:15)
[2017-01-10 05:20] LABS: Basophils # 0.4 10*3/uL (0.0-0.2); Basophils % 0.5 % (0.0-0.8); Hematocrit 26.3 VOL% (35.7-47.0); Immature Granulocytes % 19.8 %; Immature Granulocytes Absolute 16.09 #; Lymphocytes # 4.9 10*3/uL (1.4-4.0); Mean Corpuscular HGB Conc 34.2 GM/DL (32-36); Mean Corpuscular Hemoglobin 34 PG (27-34); Mean Corpuscular Volume 97.8 FL (87-102); Mean Platelet Volume 11.6 FL (9.6-12.0); Monocytes # 2.9 10*3/uL (0.11-0.8); Monocytes % 3.6 % (1.7-12.7); NRBC # 0.05 10*3/uL; Neutrophils % 70.1 % (38.7-73.9); Platelet Count 49 T/CUMM (130-400); Red Blood Count 2.69 MC/CUMM (3.8-5.5)
[2017-01-10 05:30] LABS: White Blood Count 81.3 T/CUMM (4-12)
[2017-01-10 05:51] LABS: Albumin 2.8 G/DL (3.4-5.0); Bilirubin,Total 0.7 MG/DL (0.2-1.0); Osmolality,Calculated 288.3 MOS/KG (273-304); Total Protein 5.5 G/DL (6.4-8.3)
[2017-01-10 06:20] LABS: Band Neutrophils 10 % (0-10); Lymphocytes 10 % (20-55); Metamyelocytes 9 %; Myelocytes 8 %; Segmented Neutrophils 48 % (50-85); Total Cells Counted 100
[2017-01-10 06:21] LABS: Hypochromasia Slight; Platelet Estimate Decreased
[2017-01-10 06:22] LABS: Anisocytosis 1+; Microcytosis 1+; Ovalocytes Slight
[2017-01-10] MEDS: LEVOTHYROXINE 137 MCG TABLET PO SCH (06:26)
[2017-01-10] MEDS: KETOROLAC 10 MG TABLET PO PRN ×3 (07:22→19:52)
[2017-01-10] MEDS: PANTOPRAZOLE 40 MG TABLET PO SCH (09:25)
[2017-01-10] MEDS: FUROSEMIDE 20 MG TABLET PO SCH (09:26)
[2017-01-10] MEDS: FOLIC ACID 1 MG TABLET PO SCH (09:26)
[2017-01-10] MEDS: TRETINOIN 10 MG CAPSULE PO SCH ×2 (09:26→21:25)
[2017-01-10] MEDS: POLYETHYLENE GLYCOL POWDER 17 GM PACK PO SCH (09:28)
[2017-01-10] MEDS: DEXTROSE 5% IV SCH (13:35)
[2017-01-10] MEDS: ARSENIC TRIOXIDE IV SCH (13:35)
[2017-01-10] MEDS: ONDANSETRON 4 MG/2 ML VIAL IV PRN (13:45)
[2017-01-10] MEDS: ZALEPLON 5 MG CAPSULE PO SCH (21:24)
[2017-01-10] MEDS: DOXEPIN 25 MG CAPSULE PO SCH (21:24)
[2017-01-10] MEDS: clonazePAM 0.5 MG TABLET PO SCH (21:24)
[2017-01-10] MEDS: ESZOPICLONE 3 MG PO SCH (21:25)
[2017-01-11] MEDS: KETOROLAC 10 MG TABLET PO PRN ×4 (03:15→23:15)
[2017-01-11] MEDS: LEVOTHYROXINE 137 MCG TABLET PO SCH (06:33)
[2017-01-11 06:35] LABS: Basophils # 0.6 10*3/uL (0.0-0.2); Basophils % 0.8 % (0.0-0.8); Hemoglobin 8.7 GM/DL (12.0-16.0); Immature Granulocytes % 16.2 %; Immature Granulocytes Absolute 13.55 #; Lymphocytes # 4.7 10*3/uL (1.4-4.0); Lymphocytes % 5.6 % (21.3-54.2); Mean Corpuscular HGB Conc 34.8 GM/DL (32-36); Mean Corpuscular Hemoglobin 34 PG (27-34); Mean Platelet Volume 11.7 FL (9.6-12.0); Monocytes # 0.5 10*3/uL (0.11-0.8); Monocytes % 0.6 % (1.7-12.7); NRBC # 0.04 10*3/uL; Neutrophils # 64.1 10*3/uL (1.4-7.4); Neutrophils % 76.8 % (38.7-73.9); Platelet Count 36 T/CUMM (130-400); Red Blood Count 2.55 MC/CUMM (3.8-5.5); Red Cell Distribution Width 20.1 % (9.3-17.3)
[2017-01-11 06:37] LABS: White Blood Count 83.5 T/CUMM (4-12)
[2017-01-11 06:59] LABS: Albumin 2.8 G/DL (3.4-5.0); Bilirubin,Total 0.5 MG/DL (0.2-1.0); Calcium 7.4 MG/DL (8.5-10.1); Magnesium 2.3 MG/DL (1.8-2.4); Osmolality,Calculated 286.5 MOS/KG (273-304); Potassium 4.4 MMOL/L (3.5-5.1); Total Protein 5.3 G/DL (6.4-8.3)
[2017-01-11 07:06] LABS: Band Neutrophils 41 % (0-10); Hypochromasia 1+; Lymphocytes 5 % (20-55); Macrocytosis 1+; Metamyelocytes 7 %; Myelocytes 13 %; Platelet Estimate Decreased; Promyelocytes 2 %; Segmented Neutrophils 24 % (50-85); Total Cells Counted 100
[2017-01-11] MEDS: MELOXICAM 7.5 MG TABLET PO SCH ×2 (09:16→21:02)
[2017-01-11] MEDS: TRETINOIN 10 MG CAPSULE PO SCH ×2 (09:17→21:02)
[2017-01-11] MEDS: FOLIC ACID 1 MG TABLET PO SCH (09:17)
[2017-01-11] MEDS: FUROSEMIDE 20 MG TABLET PO SCH (09:17)
[2017-01-11] MEDS: PANTOPRAZOLE 40 MG TABLET PO SCH (09:17)
[2017-01-11] MEDS: POLYETHYLENE GLYCOL POWDER 17 GM PACK PO SCH (09:19)
[2017-01-11] MEDS: SODIUM CHLORIDE 0.45% 1,000 ML IV SCH ×2 (15:04→15:05)
[2017-01-11] MEDS: ARSENIC TRIOXIDE IV SCH (15:05)
[2017-01-11] MEDS: DEXTROSE 5% IV SCH (15:05)
[2017-01-11] MEDS: ONDANSETRON 4 MG/2 ML VIAL IV PRN (17:47)
[2017-01-11] MEDS: ZALEPLON 5 MG CAPSULE PO SCH (21:01)
[2017-01-11] MEDS: clonazePAM 0.5 MG TABLET PO SCH (21:02)
[2017-01-11] MEDS: DOXEPIN 25 MG CAPSULE PO SCH (21:02)
[2017-01-11] MEDS: ESZOPICLONE 3 MG PO SCH (21:11)
[2017-01-12 05:39] LABS: Basophils # 0.5 10*3/uL (0.0-0.2); Basophils % 0.8 % (0.0-0.8); Eosinophils # 0.1 10*3/uL (0.0-0.87); Eosinophils % 0.1 % (0.00-10.9); Hematocrit 26.4 VOL% (35.7-47.0); Hemoglobin 8.8 GM/DL (12.0-16.0); Immature Granulocytes % 15.3 %; Immature Granulocytes Absolute 10.24 #; Lymphocytes # 3.6 10*3/uL (1.4-4.0); Lymphocytes % 5.4 % (21.3-54.2); Mean Corpuscular HGB Conc 33.3 GM/DL (32-36); Mean Corpuscular Hemoglobin 34 PG (27-34); Mean Corpuscular Volume 100.4 FL (87-102); Monocytes # 0.7 10*3/uL (0.11-0.8); NRBC # 0.02 10*3/uL; Neutrophils % 77.4 % (38.7-73.9); Red Blood Count 2.63 MC/CUMM (3.8-5.5); Red Cell Distribution Width 20.3 % (9.3-17.3)
[2017-01-12 05:48] LABS: Albumin 2.5 G/DL (3.4-5.0); Bilirubin,Total 0.8 MG/DL (0.2-1.0); Calcium 7.6 MG/DL (8.5-10.1); Magnesium 2.1 MG/DL (1.8-2.4); Osmolality,Calculated 281.7 MOS/KG (273-304); Potassium 4.1 MMOL/L (3.5-5.1); Total Protein 5.2 G/DL (6.4-8.3)
[2017-01-12 05:49] LABS: Platelet Count 27 T/CUMM (130-400); White Blood Count 67.1 T/CUMM (4-12)
[2017-01-12] MEDS: KETOROLAC 10 MG TABLET PO PRN ×2 (06:25→15:27)
[2017-01-12] MEDS: LEVOTHYROXINE 137 MCG TABLET PO SCH (06:25)
[2017-01-12 06:27] LABS: Band Neutrophils 14 % (0-10); Hypochromasia Slight; Lymphocytes 11 % (20-55); Metamyelocytes 3 %; Myelocytes 6 %; Platelet Estimate Decreased; Segmented Neutrophils 65 % (50-85); Total Cells Counted 100
[2017-01-12 06:29] LABS: Microcytosis Slight; Ovalocytes Slight
[2017-01-12] MEDS: PANTOPRAZOLE 40 MG TABLET PO SCH (10:18)
[2017-01-12] MEDS: FUROSEMIDE 20 MG TABLET PO SCH (10:18)
[2017-01-12] MEDS: MELOXICAM 7.5 MG TABLET PO SCH ×2 (10:18→21:24)
[2017-01-12] MEDS: POLYETHYLENE GLYCOL POWDER 17 GM PACK PO SCH (10:18)
[2017-01-12] MEDS: traMADol 50 MG TABLET PO PRN ×2 (10:18→15:07)
[2017-01-12] MEDS: FOLIC ACID 1 MG TABLET PO SCH (10:18)
[2017-01-12] MEDS: TRETINOIN 10 MG CAPSULE PO SCH ×2 (10:19→21:22)
[2017-01-12] MEDS: ARSENIC TRIOXIDE IV SCH (15:07)
[2017-01-12] MEDS: DEXTROSE 5% IV SCH (15:07)
[2017-01-12] MEDS: SODIUM CHLORIDE 0.45% 1,000 ML IV SCH ×2 (15:08→20:30)
[2017-01-12] MEDS: ESZOPICLONE 3 MG PO SCH (21:21)
[2017-01-12] MEDS: ZALEPLON 5 MG CAPSULE PO SCH (21:23)
[2017-01-12] MEDS: clonazePAM 0.5 MG TABLET PO SCH (21:24)
[2017-01-12] MEDS: DOXEPIN 25 MG CAPSULE PO SCH (21:24)
[2017-01-13] MEDS: traMADol 50 MG TABLET PO PRN ×2 (02:05→21:14)
[2017-01-13 07:55] LABS: Basophils # 0.3 10*3/uL (0.0-0.2); Basophils % 0.5 % (0.0-0.8); Eosinophils # 0.1 10*3/uL (0.0-0.87); Eosinophils % 0.1 % (0.00-10.9); Hematocrit 24.8 VOL% (35.7-47.0); Hemoglobin 8.4 GM/DL (12.0-16.0); Immature Granulocytes % 14.4 %; Immature Granulocytes Absolute 9.87 #; Lymphocytes # 4.3 10*3/uL (1.4-4.0); Lymphocytes % 6.3 % (21.3-54.2); Mean Corpuscular HGB Conc 33.9 GM/DL (32-36); Mean Corpuscular Hemoglobin 34 PG (27-34); Mean Corpuscular Volume 100.8 FL (87-102); Monocytes # 0.3 10*3/uL (0.11-0.8); Monocytes % 0.4 % (1.7-12.7); NRBC # 0.04 10*3/uL; Neutrophils # 53.4 10*3/uL (1.4-7.4); Neutrophils % 78.3 % (38.7-73.9); Platelet Count 23 T/CUMM (130-400); Red Blood Count 2.46 MC/CUMM (3.8-5.5); Red Cell Distribution Width 20.2 % (9.3-17.3)
[2017-01-13 07:59] LABS: White Blood Count 68.3 T/CUMM (4-12)
[2017-01-13] MEDS ORDERED: POLYETHYLENE GLYCOL POWDER 17 GM PACK PO PRN (08:18)
[2017-01-13 08:21] LABS: INR 0.9; PT Patient Result 9.9 SECS; Partial Thromboplastin Time 29.6 SECS (0-40)
[2017-01-13] MEDS: TRETINOIN 10 MG CAPSULE PO SCH ×2 (08:38→20:22)
[2017-01-13] MEDS: LEVOTHYROXINE 137 MCG TABLET PO SCH (08:39)
[2017-01-13] MEDS: FUROSEMIDE 20 MG TABLET PO SCH (08:39)
[2017-01-13] MEDS: PANTOPRAZOLE 40 MG TABLET PO SCH (08:39)
[2017-01-13] MEDS: MELOXICAM 7.5 MG TABLET PO SCH ×2 (08:39→20:22)
[2017-01-13] MEDS: FOLIC ACID 1 MG TABLET PO SCH (08:39)
[2017-01-13] MEDS: KETOROLAC 10 MG TABLET PO PRN ×3 (08:43→22:12)
[2017-01-13 08:50] LABS: Albumin 2.8 G/DL (3.4-5.0); Bilirubin,Total 0.5 MG/DL (0.2-1.0); Calcium 8.2 MG/DL (8.5-10.1); Osmolality,Calculated 286.4 MOS/KG (273-304); Potassium 4.2 MMOL/L (3.5-5.1); Total Protein 5.6 G/DL (6.4-8.3)
[2017-01-13 12:38] LABS: Band Neutrophils 52 % (0-10); Hypochromasia 1+; Lymphocytes 7 % (20-55); Macrocytosis Slight; Myelocytes 10 %; Platelet Estimate Decreased; Segmented Neutrophils 23 % (50-85); Total Cells Counted 100
[2017-01-13] MEDS: DEXTROSE 5% IV SCH (15:46)
[2017-01-13] MEDS: ARSENIC TRIOXIDE IV SCH (15:46)
[2017-01-13] MEDS: SODIUM CHLORIDE 0.45% 1,000 ML IV SCH ×2 (16:31→20:35)
[2017-01-13] MEDS: POLYETHYLENE GLYCOL POWDER 17 GM PACK PO SCH (20:16)
[2017-01-13] MEDS: DOXEPIN 25 MG CAPSULE PO SCH (20:21)
[2017-01-13] MEDS: ESZOPICLONE 3 MG PO SCH (20:23)
[2017-01-13] MEDS: clonazePAM 0.5 MG TABLET PO SCH (20:24)
[2017-01-13] MEDS: ZALEPLON 5 MG CAPSULE PO SCH (20:24)
[2017-01-14] MEDS: ACETAMINOPHEN 325 MG TABLET PO PRN (02:12)
[2017-01-14] MEDS: MORPHINE 2 MG/1 ML SYRINGE IV PRN ×4 (02:43→20:53)
[2017-01-14 02:48] LABS: INR 0.9; PT Patient Result 9.8 SECS; Partial Thromboplastin Time 29.4 SECS (0-40)
[2017-01-14 02:51] LABS: Basophils # 0.3 10*3/uL (0.0-0.2); Basophils % 0.5 % (0.0-0.8); Eosinophils # 0.1 10*3/uL (0.0-0.87); Eosinophils % 0.2 % (0.00-10.9); Hematocrit 23.4 VOL% (35.7-47.0); Hemoglobin 8.1 GM/DL (12.0-16.0); Immature Granulocytes % 15.1 %; Immature Granulocytes Absolute 8.81 #; Lymphocytes # 4.3 10*3/uL (1.4-4.0); Lymphocytes % 7.4 % (21.3-54.2); Mean Corpuscular HGB Conc 34.6 GM/DL (32-36); Mean Corpuscular Hemoglobin 34 PG (27-34); Mean Corpuscular Volume 96.7 FL (87-102); Mean Platelet Volume 10.9 FL (9.6-12.0); Monocytes # 0.2 10*3/uL (0.11-0.8); Monocytes % 0.4 % (1.7-12.7); NRBC # 0.05 10*3/uL; Neutrophils # 44.6 10*3/uL (1.4-7.4); Neutrophils % 76.4 % (38.7-73.9); Red Blood Count 2.42 MC/CUMM (3.8-5.5); Red Cell Distribution Width 19.9 % (9.3-17.3)
[2017-01-14 02:56] LABS: Platelet Count 24 T/CUMM (130-400); White Blood Count 58.4 T/CUMM (4-12)
[2017-01-14 03:09] LABS: Albumin 2.8 G/DL (3.4-5.0); Bilirubin,Total 0.8 MG/DL (0.2-1.0); Calcium 8.1 MG/DL (8.5-10.1); Osmolality,Calculated 286.4 MOS/KG (273-304); Potassium 4.3 MMOL/L (3.5-5.1); Total Protein 5.6 G/DL (6.4-8.3)
[2017-01-14 07:53] LABS: Band Neutrophils 31 % (0-10); Lymphocytes 12 % (20-55); Myelocytes 9 %; Segmented Neutrophils 46 % (50-85); Total Cells Counted 100
[2017-01-14 07:54] LABS: Hypochromasia 1+; Microcytosis 1+; Platelet Estimate Decreased
[2017-01-14] MEDS: TRETINOIN 10 MG CAPSULE PO SCH ×2 (08:11→20:38)
[2017-01-14] MEDS ORDERED: MELOXICAM 7.5 MG TABLET PO PRN (08:13)
[2017-01-14] MEDS: LEVOTHYROXINE 137 MCG TABLET PO SCH (08:13)
[2017-01-14] MEDS: FUROSEMIDE 20 MG TABLET PO SCH (08:13)
[2017-01-14] MEDS: POLYETHYLENE GLYCOL POWDER 17 GM PACK PO SCH ×2 (08:14→20:40)
[2017-01-14] MEDS: FOLIC ACID 1 MG TABLET PO SCH (08:14)
[2017-01-14] MEDS: PANTOPRAZOLE 40 MG TABLET PO SCH (08:14)
[2017-01-14] MEDS: traMADol 50 MG TABLET PO PRN ×2 (08:22→14:48)
[2017-01-14 09:26] LABS: Bilirubin,Total 0.6 MG/DL (0.2-1.0); Calcium 8.5 MG/DL (8.5-10.1); Osmolality,Calculated 287.4 MOS/KG (273-304); Potassium 4.3 MMOL/L (3.5-5.1)
[2017-01-14] MEDS: SALIVA SUBSTITUTE SPRAY 60 ML CAN SWISH/SPIT SCH ×4 (11:06→20:43)
[2017-01-14] MEDS: NYSTATIN 500,000 UNIT/5 ML UDCUP SWISH/SWAL SCH ×5 (11:06→20:43)
[2017-01-14] MEDS: SODIUM CHLORIDE 0.45% 1,000 ML IV SCH (14:13)
[2017-01-14] MEDS: DEXTROSE 5% IV SCH (14:49)
[2017-01-14] MEDS: ARSENIC TRIOXIDE IV SCH (14:49)
[2017-01-14] MEDS: clonazePAM 0.5 MG TABLET PO SCH (20:37)
[2017-01-14] MEDS: ZALEPLON 5 MG CAPSULE PO SCH (20:39)
[2017-01-14] MEDS: ESZOPICLONE 3 MG PO SCH (20:39)
[2017-01-14] MEDS: DOXEPIN 25 MG CAPSULE PO SCH (20:39)
[2017-01-15] MEDS: SALIVA SUBSTITUTE SPRAY 60 ML CAN SWISH/SPIT SCH ×6 (01:07→20:59)
[2017-01-15] MEDS: MORPHINE 2 MG/1 ML SYRINGE IV PRN ×5 (02:39→21:23)
[2017-01-15 05:00] LABS: Basophils # 0.1 10*3/uL (0.0-0.2); Basophils % 0.3 % (0.0-0.8); Eosinophils # 0.2 10*3/uL (0.0-0.87); Eosinophils % 0.4 % (0.00-10.9); Hematocrit 21.5 VOL% (35.7-47.0); Hemoglobin 7.4 GM/DL (12.0-16.0); Immature Granulocytes % 12.1 %; Immature Granulocytes Absolute 4.86 #; Lymphocytes # 3.6 10*3/uL (1.4-4.0); Lymphocytes % 8.9 % (21.3-54.2); Mean Corpuscular HGB Conc 34.4 GM/DL (32-36); Mean Corpuscular Hemoglobin 33 PG (27-34); Mean Corpuscular Volume 96.8 FL (87-102); Mean Platelet Volume 13.5 FL (9.6-12.0); Monocytes # 0.2 10*3/uL (0.11-0.8); Monocytes % 0.4 % (1.7-12.7); NRBC # 0.03 10*3/uL; Neutrophils # 31.2 10*3/uL (1.4-7.4); Neutrophils % 77.9 % (38.7-73.9); Red Blood Count 2.22 MC/CUMM (3.8-5.5); Red Cell Distribution Width 19.6 % (9.3-17.3)
[2017-01-15 05:18] LABS: Platelet Count 21 T/CUMM (130-400); White Blood Count 40.1 T/CUMM (4-12)
[2017-01-15 06:32] LABS: Band Neutrophils 5 % (0-10); Lymphocytes 9 % (20-55); Metamyelocytes 3 %; Myelocytes 3 %; Segmented Neutrophils 76 % (50-85); Total Cells Counted 100
[2017-01-15 06:39] LABS: Hypochromasia 1+
[2017-01-15 06:40] LABS: Microcytosis 1+; Platelet Estimate Decreased
[2017-01-15] MEDS: LEVOTHYROXINE 137 MCG TABLET PO SCH (07:09)
[2017-01-15] MEDS ORDERED: SODIUM CHLORIDE 0.9% 1,000 ML IV PRN (08:16)
[2017-01-15] MEDS: NYSTATIN 500,000 UNIT/5 ML UDCUP SWISH/SWAL SCH ×4 (08:19→21:00)
[2017-01-15] MEDS: PANTOPRAZOLE 40 MG TABLET PO SCH (08:20)
[2017-01-15] MEDS: TRETINOIN 10 MG CAPSULE PO SCH ×2 (08:20→20:56)
[2017-01-15] MEDS: POLYETHYLENE GLYCOL POWDER 17 GM PACK PO SCH ×2 (08:20→20:57)
[2017-01-15] MEDS: FUROSEMIDE 20 MG TABLET PO SCH (08:21)
[2017-01-15] MEDS: FOLIC ACID 1 MG TABLET PO SCH (08:21)
[2017-01-15] MEDS: ONDANSETRON 4 MG/2 ML VIAL IV PRN (10:21)
[2017-01-15] MEDS: ARSENIC TRIOXIDE IV SCH (10:35)
[2017-01-15] MEDS: DEXTROSE 5% IV SCH (10:35)
[2017-01-15] MEDS: ZALEPLON 5 MG CAPSULE PO SCH (20:54)
[2017-01-15] MEDS: clonazePAM 0.5 MG TABLET PO SCH (20:54)
[2017-01-15] MEDS: ESZOPICLONE 3 MG PO SCH (21:05)
[2017-01-15] MEDS: DOXEPIN 25 MG CAPSULE PO SCH (21:23)
[2017-01-15] MEDS: traMADol 50 MG TABLET PO PRN (23:28)
[2017-01-16] MEDS: TEMAZEPAM 7.5 MG CAPSULE PO PRN (00:26)
[2017-01-16] MEDS: MORPHINE 2 MG/1 ML SYRINGE IV PRN ×5 (00:26→21:56)
[2017-01-16] MEDS: SALIVA SUBSTITUTE SPRAY 60 ML CAN SWISH/SPIT SCH ×6 (00:29→21:58)
[2017-01-16 05:33] LABS: Basophils # 0.1 10*3/uL (0.0-0.2); Basophils % 0.3 % (0.0-0.8); Eosinophils # 0.4 10*3/uL (0.0-0.87); Eosinophils % 1.3 % (0.00-10.9); Hematocrit 24.9 VOL% (35.7-47.0); Hemoglobin 8.6 GM/DL (12.0-16.0); Immature Granulocytes % 11.7 %; Immature Granulocytes Absolute 3.33 #; Lymphocytes % 10.6 % (21.3-54.2); Mean Corpuscular HGB Conc 34.5 GM/DL (32-36); Mean Corpuscular Hemoglobin 34 PG (27-34); Mean Corpuscular Volume 96.9 FL (87-102); Mean Platelet Volume 14.2 FL (9.6-12.0); Monocytes # 0.2 10*3/uL (0.11-0.8); Monocytes % 0.6 % (1.7-12.7); NRBC # 0.07 10*3/uL; Neutrophils # 21.6 10*3/uL (1.4-7.4); Neutrophils % 75.5 % (38.7-73.9); Red Blood Count 2.57 MC/CUMM (3.8-5.5); Red Cell Distribution Width 18.6 % (9.3-17.3); White Blood Count 28.5 T/CUMM (4-12)
[2017-01-16 05:44] LABS: Platelet Count 21 T/CUMM (130-400)
[2017-01-16 06:01] LABS: Albumin 2.6 G/DL (3.4-5.0); Bilirubin,Total 0.7 MG/DL (0.2-1.0); Calcium 7.7 MG/DL (8.5-10.1); Magnesium 2.1 MG/DL (1.8-2.4); Osmolality,Calculated 279.7 MOS/KG (273-304); Potassium 3.9 MMOL/L (3.5-5.1); Total Protein 5.5 G/DL (6.4-8.3)
[2017-01-16 06:05] LABS: Band Neutrophils 4 % (0-10); Lymphocytes 14 % (20-55); Macrocytosis 1+; Metamyelocytes 3 %; Myelocytes 2 %; Segmented Neutrophils 72 % (50-85); Total Cells Counted 100
[2017-01-16 06:06] LABS: Hypochromasia Slight; Platelet Estimate Decreased
[2017-01-16] MEDS: LEVOTHYROXINE 137 MCG TABLET PO SCH (07:03)
[2017-01-16] MEDS ORDERED: DEXAMETHASONE 10 MG/1 ML VIAL IV ONE (07:55)
[2017-01-16] MEDS: SODIUM CHLORIDE 0.45% 1,000 ML IV SCH ×3 (08:51→21:59)
[2017-01-16] MEDS: FUROSEMIDE 20 MG TABLET PO SCH (09:08)
[2017-01-16] MEDS: POLYETHYLENE GLYCOL POWDER 17 GM PACK PO SCH ×2 (09:08→21:55)
[2017-01-16] MEDS: PANTOPRAZOLE 40 MG TABLET PO SCH (09:09)
[2017-01-16] MEDS: TRETINOIN 10 MG CAPSULE PO SCH ×2 (09:09→21:54)
[2017-01-16] MEDS: NYSTATIN 500,000 UNIT/5 ML UDCUP SWISH/SWAL SCH ×4 (09:09→21:59)
[2017-01-16] MEDS: MELOXICAM 7.5 MG TABLET PO SCH ×2 (09:09→21:51)
[2017-01-16] MEDS: FOLIC ACID 1 MG TABLET PO SCH (09:10)
[2017-01-16] MEDS: ARSENIC TRIOXIDE IV SCH (10:53)
[2017-01-16] MEDS: DEXTROSE 5% IV SCH (10:53)
[2017-01-16] MEDS: ZALEPLON 5 MG CAPSULE PO SCH (21:51)
[2017-01-16] MEDS: DOXEPIN 25 MG CAPSULE PO SCH (21:51)
[2017-01-16] MEDS: clonazePAM 0.5 MG TABLET PO SCH (21:51)
[2017-01-16] MEDS: ESZOPICLONE 3 MG PO SCH (21:52)
[2017-01-17] MEDS: MORPHINE 2 MG/1 ML SYRINGE IV PRN ×7 (00:28→20:56)
[2017-01-17] MEDS: SALIVA SUBSTITUTE SPRAY 60 ML CAN SWISH/SPIT SCH ×6 (00:30→20:47)
[2017-01-17] MEDS: TEMAZEPAM 7.5 MG CAPSULE PO PRN (01:47)
[2017-01-17 05:09] LABS: Basophils % 0.2 % (0.0-0.8); Eosinophils # 0.1 10*3/uL (0.0-0.87); Eosinophils % 0.5 % (0.00-10.9); Hematocrit 24.9 VOL% (35.7-47.0); Hemoglobin 8.7 GM/DL (12.0-16.0); Immature Granulocytes % 10.3 %; Immature Granulocytes Absolute 2.43 #; Lymphocytes # 2.8 10*3/uL (1.4-4.0); Lymphocytes % 11.7 % (21.3-54.2); Mean Corpuscular HGB Conc 34.9 GM/DL (32-36); Mean Corpuscular Hemoglobin 33 PG (27-34); Mean Platelet Volume 13.9 FL (9.6-12.0); Monocytes # 0.1 10*3/uL (0.11-0.8); Monocytes % 0.4 % (1.7-12.7); NRBC # 0.04 10*3/uL; Neutrophils # 18.2 10*3/uL (1.4-7.4); Neutrophils % 76.9 % (38.7-73.9); Red Blood Count 2.62 MC/CUMM (3.8-5.5); Red Cell Distribution Width 17.8 % (9.3-17.3); White Blood Count 23.6 T/CUMM (4-12)
[2017-01-17 05:13] LABS: Platelet Count 17 T/CUMM (130-400)
[2017-01-17] MEDS ORDERED: SODIUM CHLORIDE 0.9% 1,000 ML IV PRN (05:17)
[2017-01-17 05:29] LABS: Band Neutrophils 4 % (0-10); Hypochromasia 1+; Lymphocytes 9 % (20-55); Metamyelocytes 1 %; Myelocytes 2 %; Platelet Estimate Decreased; Segmented Neutrophils 83 % (50-85); Total Cells Counted 100
[2017-01-17 05:30] LABS: Ovalocytes Slight
[2017-01-17] MEDS: LEVOTHYROXINE 137 MCG TABLET PO SCH (06:45)
[2017-01-17] MEDS: ONDANSETRON 4 MG/2 ML VIAL IV PRN (09:33)
[2017-01-17] MEDS: POLYETHYLENE GLYCOL POWDER 17 GM PACK PO SCH ×2 (09:34→20:47)
[2017-01-17] MEDS: NYSTATIN 500,000 UNIT/5 ML UDCUP SWISH/SWAL SCH ×4 (09:34→20:52)
[2017-01-17] MEDS: FOLIC ACID 1 MG TABLET PO SCH (09:35)
[2017-01-17] MEDS: TRETINOIN 10 MG CAPSULE PO SCH ×2 (09:35→20:51)
[2017-01-17] MEDS: PANTOPRAZOLE 40 MG TABLET PO SCH (09:35)
[2017-01-17] MEDS: FUROSEMIDE 20 MG TABLET PO SCH (09:35)
[2017-01-17] MEDS: MELOXICAM 7.5 MG TABLET PO SCH ×2 (09:35→20:50)
[2017-01-17] MEDS: DEXTROSE 5% IV SCH (15:46)
[2017-01-17] MEDS: ARSENIC TRIOXIDE IV SCH (15:46)
[2017-01-17] MEDS: traMADol 50 MG TABLET PO PRN (19:40)
[2017-01-17] MEDS: ALPRAZolam 0.25 MG TABLET PO PRN (19:40)
[2017-01-17] MEDS: ESZOPICLONE 3 MG PO SCH (20:27)
[2017-01-17] MEDS: ZALEPLON 5 MG CAPSULE PO SCH (20:48)
[2017-01-17] MEDS: clonazePAM 0.5 MG TABLET PO SCH (20:50)
[2017-01-17] MEDS: DOXEPIN 10 MG CAPSULE PO SCH (20:51)
[2017-01-17] MEDS: DOXEPIN 25 MG CAPSULE PO SCH (20:51)
[2017-01-18] MEDS: SALIVA SUBSTITUTE SPRAY 60 ML CAN SWISH/SPIT SCH ×6 (00:18→21:20)
[2017-01-18] MEDS: MORPHINE 2 MG/1 ML SYRINGE IV PRN ×4 (00:49→16:53)
[2017-01-18] MEDS: ALPRAZolam 0.25 MG TABLET PO PRN ×2 (01:59→17:05)
[2017-01-18] MEDS: SODIUM CHLORIDE 0.45% 1,000 ML IV SCH ×2 (02:45→21:15)
[2017-01-18 06:13] LABS: Basophils % 0.1 % (0.0-0.8); Eosinophils # 0.4 10*3/uL (0.0-0.87); Eosinophils % 3.3 % (0.00-10.9); Hematocrit 25.4 VOL% (35.7-47.0); Hemoglobin 8.8 GM/DL (12.0-16.0); Immature Granulocytes Absolute 0.64 #; Lymphocytes # 2.3 10*3/uL (1.4-4.0); Lymphocytes % 21.3 % (21.3-54.2); Mean Corpuscular HGB Conc 34.6 GM/DL (32-36); Mean Corpuscular Hemoglobin 34 PG (27-34); Mean Corpuscular Volume 97.3 FL (87-102); Mean Platelet Volume 11.8 FL (9.6-12.0); Monocytes # 0.1 10*3/uL (0.11-0.8); Neutrophils # 7.3 10*3/uL (1.4-7.4); Neutrophils % 68.3 % (38.7-73.9); Platelet Count 48 T/CUMM (130-400); Red Blood Count 2.61 MC/CUMM (3.8-5.5); Red Cell Distribution Width 17.3 % (9.3-17.3); White Blood Count 10.7 T/CUMM (4-12)
[2017-01-18 06:43] LABS: Albumin 3.2 G/DL (3.4-5.0); Bilirubin,Total 0.8 MG/DL (0.2-1.0); Calcium 8.6 MG/DL (8.5-10.1); Magnesium 2.2 MG/DL (1.8-2.4); Osmolality,Calculated 287.3 MOS/KG (273-304); Potassium 4.3 MMOL/L (3.5-5.1); Total Protein 6.2 G/DL (6.4-8.3)
[2017-01-18 06:56] LABS: Band Neutrophils 1 % (0-10); Eosinophils 2 % (0-10); Lymphocytes 23 % (20-55); Metamyelocytes 3 %; Myelocytes 1 %; Segmented Neutrophils 68 % (50-85); Total Cells Counted 100
[2017-01-18 06:57] LABS: Anisocytosis 1+; Hypochromasia 1+; Microcytosis 1+; Ovalocytes Slight; Platelet Estimate Decreased
[2017-01-18] MEDS: MELOXICAM 7.5 MG TABLET PO SCH ×2 (09:56→21:19)
[2017-01-18] MEDS: FOLIC ACID 1 MG TABLET PO SCH (09:56)
[2017-01-18] MEDS: PANTOPRAZOLE 40 MG TABLET PO SCH (09:56)
[2017-01-18] MEDS: NYSTATIN 500,000 UNIT/5 ML UDCUP SWISH/SWAL SCH ×4 (09:56→21:20)
[2017-01-18] MEDS: LEVOTHYROXINE 137 MCG TABLET PO SCH (09:56)
[2017-01-18] MEDS: FUROSEMIDE 20 MG TABLET PO SCH (09:56)
[2017-01-18] MEDS: POLYETHYLENE GLYCOL POWDER 17 GM PACK PO SCH ×2 (09:57→21:16)
[2017-01-18] MEDS: TRETINOIN 10 MG CAPSULE PO SCH ×2 (09:59→21:19)
[2017-01-18] MEDS: DEXTROSE 5% IV SCH (11:50)
[2017-01-18] MEDS: ARSENIC TRIOXIDE IV SCH (11:50)
[2017-01-18] MEDS: clonazePAM 0.5 MG TABLET PO SCH (21:17)
[2017-01-18] MEDS: DOXEPIN 25 MG CAPSULE PO SCH (21:19)
[2017-01-18] MEDS: traMADol 50 MG TABLET PO PRN (21:19)
[2017-01-18] MEDS: DOXEPIN 10 MG CAPSULE PO SCH (21:19)
[2017-01-18] MEDS: ZALEPLON 5 MG CAPSULE PO SCH (21:19)
[2017-01-18] MEDS: ESZOPICLONE 3 MG PO SCH (21:20)
[2017-01-19] MEDS: MORPHINE 2 MG/1 ML SYRINGE IV PRN ×3 (01:19→21:43)
[2017-01-19] MEDS: ALPRAZolam 0.25 MG TABLET PO PRN ×2 (01:26→21:25)
[2017-01-19] MEDS: SALIVA SUBSTITUTE SPRAY 60 ML CAN SWISH/SPIT SCH ×6 (04:40→21:28)
[2017-01-19 05:29] LABS: Eosinophils # 0.3 10*3/uL (0.0-0.87); Eosinophils % 6.3 % (0.00-10.9); Hematocrit 23.1 VOL% (35.7-47.0); Immature Granulocytes % 1.5 %; Immature Granulocytes Absolute 0.08 #; Lymphocytes # 1.3 10*3/uL (1.4-4.0); Lymphocytes % 23.2 % (21.3-54.2); Mean Corpuscular HGB Conc 34.6 GM/DL (32-36); Mean Corpuscular Hemoglobin 33 PG (27-34); Mean Corpuscular Volume 95.5 FL (87-102); Mean Platelet Volume 12.4 FL (9.6-12.0); Monocytes # 0.1 10*3/uL (0.11-0.8); Monocytes % 1.3 % (1.7-12.7); Neutrophils # 3.7 10*3/uL (1.4-7.4); Neutrophils % 67.7 % (38.7-73.9); Red Blood Count 2.42 MC/CUMM (3.8-5.5); Red Cell Distribution Width 16.9 % (9.3-17.3); White Blood Count 5.4 T/CUMM (4-12)
[2017-01-19 05:55] LABS: Platelet Count 36 T/CUMM (130-400)
[2017-01-19] MEDS: LEVOTHYROXINE 137 MCG TABLET PO SCH (06:01)
[2017-01-19] MEDS: FOLIC ACID 1 MG TABLET PO SCH (08:28)
[2017-01-19] MEDS: FUROSEMIDE 20 MG TABLET PO SCH (08:28)
[2017-01-19] MEDS: MELOXICAM 7.5 MG TABLET PO SCH ×2 (08:28→21:25)
[2017-01-19] MEDS: traMADol 50 MG TABLET PO PRN ×3 (08:28→23:52)
[2017-01-19] MEDS: NYSTATIN 500,000 UNIT/5 ML UDCUP SWISH/SWAL SCH ×4 (08:28→21:26)
[2017-01-19] MEDS: PANTOPRAZOLE 40 MG TABLET PO SCH (08:28)
[2017-01-19] MEDS: POLYETHYLENE GLYCOL POWDER 17 GM PACK PO SCH (08:29)
[2017-01-19] MEDS: TRETINOIN 10 MG CAPSULE PO SCH ×2 (08:29→21:27)
[2017-01-19] MEDS: DEXTROSE 5% IV SCH (11:50)
[2017-01-19] MEDS: ARSENIC TRIOXIDE IV SCH (11:50)
[2017-01-19] MEDS ORDERED: HEPARIN LOCK FLUSH 500 UNIT/5 ML SYRINGE IV ONE (17:00)
[2017-01-19] MEDS: clonazePAM 0.5 MG TABLET PO SCH (21:25)
[2017-01-19] MEDS: ZALEPLON 5 MG CAPSULE PO SCH (21:25)
[2017-01-19] MEDS: DOXEPIN 25 MG CAPSULE PO SCH (21:26)
[2017-01-19] MEDS: DOXEPIN 10 MG CAPSULE PO SCH (21:26)
[2017-01-19] MEDS: ESZOPICLONE 3 MG PO SCH (21:27)
[2017-01-20] MEDS: MORPHINE 2 MG/1 ML SYRINGE IV PRN ×4 (00:18→21:23)
[2017-01-20] MEDS: SALIVA SUBSTITUTE SPRAY 60 ML CAN SWISH/SPIT SCH ×6 (00:20→21:33)
[2017-01-20] MEDS: SODIUM CHLORIDE 0.45% 1,000 ML IV SCH ×2 (01:17→22:45)
[2017-01-20] MEDS: TEMAZEPAM 7.5 MG CAPSULE PO PRN (01:17)
[2017-01-20] MEDS: ALPRAZolam 0.25 MG TABLET PO PRN ×2 (02:45→20:22)
[2017-01-20 05:48] LABS: Basophils % 0.2 % (0.0-0.8); Eosinophils # 0.3 10*3/uL (0.0-0.87); Eosinophils % 6.6 % (0.00-10.9); Hematocrit 22.7 VOL% (35.7-47.0); Immature Granulocytes % 0.8 %; Immature Granulocytes Absolute 0.04 #; Lymphocytes # 1.1 10*3/uL (1.4-4.0); Lymphocytes % 22.7 % (21.3-54.2); Mean Corpuscular HGB Conc 35.2 GM/DL (32-36); Mean Corpuscular Hemoglobin 34 PG (27-34); Mean Corpuscular Volume 95.4 FL (87-102); Mean Platelet Volume 12.1 FL (9.6-12.0); Monocytes # 0.1 10*3/uL (0.11-0.8); Monocytes % 2.1 % (1.7-12.7); Neutrophils # 3.2 10*3/uL (1.4-7.4); Neutrophils % 67.6 % (38.7-73.9); Red Blood Count 2.38 MC/CUMM (3.8-5.5); Red Cell Distribution Width 16.8 % (9.3-17.3); White Blood Count 4.7 T/CUMM (4-12)
[2017-01-20 05:51] LABS: Platelet Count 28 T/CUMM (130-400)
[2017-01-20 06:12] LABS: Bilirubin,Total 0.9 MG/DL (0.2-1.0); Calcium 7.6 MG/DL (8.5-10.1); Osmolality,Calculated 276.1 MOS/KG (273-304); Potassium 4.1 MMOL/L (3.5-5.1); Total Protein 5.9 G/DL (6.4-8.3)
[2017-01-20 06:17] LABS: Band Neutrophils 4 % (0-10); Eosinophils 6 % (0-10); Lymphocytes 19 % (20-55); Segmented Neutrophils 70 % (50-85); Total Cells Counted 100
[2017-01-20 06:18] LABS: Anisocytosis 1+; Poikilocytosis 1+
[2017-01-20] MEDS: LEVOTHYROXINE 137 MCG TABLET PO SCH (06:56)
[2017-01-20] MEDS: MELOXICAM 7.5 MG TABLET PO SCH ×2 (08:46→21:29)
[2017-01-20] MEDS: POLYETHYLENE GLYCOL POWDER 17 GM PACK PO SCH ×2 (08:46→09:09)
[2017-01-20] MEDS: PANTOPRAZOLE 40 MG TABLET PO SCH (08:47)
[2017-01-20] MEDS: FUROSEMIDE 20 MG TABLET PO SCH (08:47)
[2017-01-20] MEDS: TRETINOIN 10 MG CAPSULE PO SCH ×2 (08:47→22:49)
[2017-01-20] MEDS: FOLIC ACID 1 MG TABLET PO SCH (08:47)
[2017-01-20] MEDS: NYSTATIN 500,000 UNIT/5 ML UDCUP SWISH/SWAL SCH ×4 (08:47→21:34)
[2017-01-20] MEDS: DEXTROSE 5% IV SCH (10:21)
[2017-01-20] MEDS: ARSENIC TRIOXIDE IV SCH (10:21)
[2017-01-20] MEDS: ONDANSETRON 4 MG/2 ML VIAL IV PRN ×2 (14:47→21:27)
[2017-01-20] MEDS: traMADol 50 MG TABLET PO PRN (20:21)
[2017-01-20] MEDS: ZALEPLON 5 MG CAPSULE PO SCH (21:28)
[2017-01-20] MEDS: clonazePAM 0.5 MG TABLET PO SCH (21:29)
[2017-01-20] MEDS: DOXEPIN 25 MG CAPSULE PO SCH (21:30)
[2017-01-20] MEDS: ESZOPICLONE 3 MG PO SCH (22:45)
[2017-01-21] MEDS: MORPHINE 2 MG/1 ML SYRINGE IV PRN ×3 (00:59→10:01)
[2017-01-21] MEDS: ALPRAZolam 0.25 MG TABLET PO PRN (01:49)
[2017-01-21] MEDS: SALIVA SUBSTITUTE SPRAY 60 ML CAN SWISH/SPIT SCH ×6 (02:47→22:10)
[2017-01-21] MEDS: traMADol 50 MG TABLET PO PRN (02:51)
[2017-01-21] MEDS: ONDANSETRON 4 MG/2 ML VIAL IV PRN ×2 (04:32→18:41)
[2017-01-21] MEDS: SODIUM CHLORIDE 0.45% 1,000 ML IV SCH (04:34)
[2017-01-21 06:33] LABS: Eosinophils # 0.2 10*3/uL (0.0-0.87); Eosinophils % 5.2 % (0.00-10.9); Hematocrit 31.1 VOL% (35.7-47.0); Immature Granulocytes Absolute 0.03 #; Lymphocytes # 0.8 10*3/uL (1.4-4.0); Lymphocytes % 24.7 % (21.3-54.2); Mean Corpuscular HGB Conc 35.4 GM/DL (32-36); Mean Corpuscular Hemoglobin 34 PG (27-34); Mean Corpuscular Volume 94.8 FL (87-102); Mean Platelet Volume 13.1 FL (9.6-12.0); Monocytes # 0.1 10*3/uL (0.11-0.8); Monocytes % 2.9 % (1.7-12.7); Neutrophils % 66.2 % (38.7-73.9); Red Blood Count 3.28 MC/CUMM (3.8-5.5); White Blood Count 3.1 T/CUMM (4-12)
[2017-01-21 06:37] LABS: Platelet Count 25 T/CUMM (130-400)
[2017-01-21] MEDS: LEVOTHYROXINE 137 MCG TABLET PO SCH (06:43)
[2017-01-21 07:13] LABS: Hypochromasia 1+; Microcytosis Slight; Ovalocytes Slight; Platelet Estimate Decreased
[2017-01-21] MEDS: NYSTATIN 500,000 UNIT/5 ML UDCUP SWISH/SWAL SCH ×4 (10:04→22:09)
[2017-01-21] MEDS: FUROSEMIDE 20 MG TABLET PO SCH (10:04)
[2017-01-21] MEDS: FOLIC ACID 1 MG TABLET PO SCH (10:04)
[2017-01-21] MEDS: MELOXICAM 7.5 MG TABLET PO SCH ×2 (10:04→22:06)
[2017-01-21] MEDS: PANTOPRAZOLE 40 MG TABLET PO SCH (10:05)
[2017-01-21] MEDS: TRETINOIN 10 MG CAPSULE PO SCH ×2 (10:13→22:08)
[2017-01-21] MEDS: POLYETHYLENE GLYCOL POWDER 17 GM PACK PO SCH (10:13)
[2017-01-21] MEDS: ARSENIC TRIOXIDE IV SCH (13:24)
[2017-01-21] MEDS: DEXTROSE 5% IV SCH (13:24)
[2017-01-21] MEDS: MORPHINE 10 MG/1 ML VIAL IV PRN ×2 (13:44→17:12)
[2017-01-21] MEDS: clonazePAM 0.5 MG TABLET PO SCH (22:05)
[2017-01-21] MEDS: DOXEPIN 25 MG CAPSULE PO SCH (22:06)
[2017-01-21] MEDS: ZALEPLON 5 MG CAPSULE PO SCH (22:07)
[2017-01-21] MEDS: ESZOPICLONE 3 MG PO SCH (23:19)
[2017-01-22] MEDS: SALIVA SUBSTITUTE SPRAY 60 ML CAN SWISH/SPIT SCH ×6 (01:08→22:10)
[2017-01-22] MEDS: SODIUM CHLORIDE 0.45% 1,000 ML IV SCH ×2 (01:13→22:02)
[2017-01-22] MEDS: MORPHINE 10 MG/1 ML VIAL IV PRN ×4 (01:50→19:44)
[2017-01-22] MEDS: ONDANSETRON 4 MG/2 ML VIAL IV PRN ×2 (01:56→13:16)
[2017-01-22] MEDS: ALPRAZolam 0.25 MG TABLET PO PRN (03:13)
[2017-01-22 05:52] LABS: Eosinophils # 0.2 10*3/uL (0.0-0.87); Eosinophils % 4.4 % (0.00-10.9); Hematocrit 21.9 VOL% (35.7-47.0); Hemoglobin 7.7 GM/DL (12.0-16.0); Immature Granulocytes % 1.4 %; Immature Granulocytes Absolute 0.05 #; Lymphocytes # 0.7 10*3/uL (1.4-4.0); Lymphocytes % 18.6 % (21.3-54.2); Mean Corpuscular HGB Conc 35.2 GM/DL (32-36); Mean Corpuscular Hemoglobin 34 PG (27-34); Mean Corpuscular Volume 96.5 FL (87-102); Mean Platelet Volume 13.1 FL (9.6-12.0); Monocytes # 0.2 10*3/uL (0.11-0.8); Monocytes % 4.4 % (1.7-12.7); Neutrophils # 2.6 10*3/uL (1.4-7.4); Neutrophils % 71.2 % (38.7-73.9); Red Blood Count 2.27 MC/CUMM (3.8-5.5); Red Cell Distribution Width 16.9 % (9.3-17.3); White Blood Count 3.7 T/CUMM (4-12)
[2017-01-22 05:59] LABS: Platelet Count 42 T/CUMM (130-400)
[2017-01-22 06:21] LABS: Albumin 2.8 G/DL (3.4-5.0); Bilirubin,Total 0.9 MG/DL (0.2-1.0); Calcium 7.9 MG/DL (8.5-10.1); Osmolality,Calculated 281.8 MOS/KG (273-304); Potassium 4.1 MMOL/L (3.5-5.1); Total Protein 5.9 G/DL (6.4-8.3)
[2017-01-22] MEDS: LEVOTHYROXINE 137 MCG TABLET PO SCH (06:31)
[2017-01-22] MEDS ORDERED: SODIUM CHLORIDE 0.9% 1,000 ML IV PRN (08:09)
[2017-01-22] MEDS: NYSTATIN 500,000 UNIT/5 ML UDCUP SWISH/SWAL SCH ×4 (09:34→22:11)
[2017-01-22] MEDS: PANTOPRAZOLE 40 MG TABLET PO SCH (09:34)
[2017-01-22] MEDS: FUROSEMIDE 20 MG TABLET PO SCH (09:34)
[2017-01-22] MEDS: POLYETHYLENE GLYCOL POWDER 17 GM PACK PO SCH (09:34)
[2017-01-22] MEDS: FOLIC ACID 1 MG TABLET PO SCH (09:34)
[2017-01-22] MEDS: MELOXICAM 7.5 MG TABLET PO SCH ×2 (09:34→22:09)
[2017-01-22] MEDS: TRETINOIN 10 MG CAPSULE PO SCH ×2 (11:00→22:07)
[2017-01-22] MEDS: ARSENIC TRIOXIDE IV SCH (11:56)
[2017-01-22] MEDS: DEXTROSE 5% IV SCH (11:56)
[2017-01-22] MEDS: clonazePAM 0.5 MG TABLET PO SCH (22:09)
[2017-01-22] MEDS: DOXEPIN 25 MG CAPSULE PO SCH (22:09)
[2017-01-22] MEDS: ESZOPICLONE 3 MG PO SCH (22:10)
[2017-01-22] MEDS: ZALEPLON 5 MG CAPSULE PO SCH (22:10)
[2017-01-23] MEDS: SALIVA SUBSTITUTE SPRAY 60 ML CAN SWISH/SPIT SCH ×6 (01:54→20:48)
[2017-01-23] MEDS: MORPHINE 10 MG/1 ML VIAL IV PRN ×3 (03:59→15:51)
[2017-01-23 05:21] LABS: Basophils % 0.4 % (0.0-0.8); Eosinophils # 0.1 10*3/uL (0.0-0.87); Eosinophils % 4.6 % (0.00-10.9); Hematocrit 26.1 VOL% (35.7-47.0); Hemoglobin 9.3 GM/DL (12.0-16.0); Immature Granulocytes % 0.8 %; Immature Granulocytes Absolute 0.02 #; Lymphocytes # 0.8 10*3/uL (1.4-4.0); Lymphocytes % 33.8 % (21.3-54.2); Mean Corpuscular HGB Conc 35.6 GM/DL (32-36); Mean Corpuscular Hemoglobin 33 PG (27-34); Mean Corpuscular Volume 91.3 FL (87-102); Mean Platelet Volume 12.6 FL (9.6-12.0); Monocytes # 0.1 10*3/uL (0.11-0.8); Monocytes % 5.8 % (1.7-12.7); NRBC # 0.02 10*3/uL; Neutrophils # 1.3 10*3/uL (1.4-7.4); Neutrophils % 54.6 % (38.7-73.9); Platelet Count 59 T/CUMM (130-400); Red Blood Count 2.86 MC/CUMM (3.8-5.5); Red Cell Distribution Width 18.4 % (9.3-17.3); White Blood Count 2.4 T/CUMM (4-12)
[2017-01-23 05:47] LABS: Eosinophils 5 % (0-10); Hypochromasia 1+; Lymphocytes 26 % (20-55); Ovalocytes Slight; Platelet Estimate Decreased; Segmented Neutrophils 59 % (50-85); Total Cells Counted 100
[2017-01-23 05:48] LABS: Microcytosis Slight
[2017-01-23 05:49] LABS: Giant Platelets Few
[2017-01-23 05:52] LABS: Albumin 2.8 G/DL (3.4-5.0); Calcium 8.3 MG/DL (8.5-10.1); Magnesium 2.3 MG/DL (1.8-2.4); Osmolality,Calculated 279.7 MOS/KG (273-304); Potassium 3.5 MMOL/L (3.5-5.1)
[2017-01-23] MEDS: LEVOTHYROXINE 137 MCG TABLET PO SCH (06:19)
[2017-01-23] MEDS: PANTOPRAZOLE 40 MG TABLET PO SCH (10:15)
[2017-01-23] MEDS: MELOXICAM 7.5 MG TABLET PO SCH ×2 (10:15→20:45)
[2017-01-23] MEDS: FOLIC ACID 1 MG TABLET PO SCH (10:15)
[2017-01-23] MEDS: NYSTATIN 500,000 UNIT/5 ML UDCUP SWISH/SWAL SCH ×4 (10:15→20:48)
[2017-01-23] MEDS: TRETINOIN 10 MG CAPSULE PO SCH ×2 (10:17→20:46)
[2017-01-23] MEDS: POLYETHYLENE GLYCOL POWDER 17 GM PACK PO SCH (10:17)
[2017-01-23] MEDS: FUROSEMIDE 20 MG TABLET PO SCH (10:17)
[2017-01-23] MEDS: DEXTROSE 5% IV SCH (15:54)
[2017-01-23] MEDS: ARSENIC TRIOXIDE IV SCH (15:54)
[2017-01-23] MEDS: PROMETHAZINE INJ 25 MG in SODIUM CHLORIDE 0.9% 50 ML IV PRN (17:25)
[2017-01-23] MEDS: ZALEPLON 5 MG CAPSULE PO SCH (20:44)
[2017-01-23] MEDS: traMADol 50 MG TABLET PO PRN (20:44)
[2017-01-23] MEDS: DOXEPIN 25 MG CAPSULE PO SCH (20:45)
[2017-01-23] MEDS: clonazePAM 0.5 MG TABLET PO SCH (20:46)
[2017-01-23] MEDS: ESZOPICLONE 3 MG PO SCH (20:49)
[2017-01-23] MEDS: SODIUM CHLORIDE 0.45% 1,000 ML IV SCH (20:55)
[2017-01-24 05:07] LABS: Eosinophils # 0.1 10*3/uL (0.0-0.87); Eosinophils % 6.3 % (0.00-10.9); Hematocrit 25.9 VOL% (35.7-47.0); Hemoglobin 8.8 GM/DL (12.0-16.0); Immature Granulocytes % 0.5 %; Immature Granulocytes Absolute 0.01 #; Lymphocytes # 0.5 10*3/uL (1.4-4.0); Mean Corpuscular Hemoglobin 32 PG (27-34); Mean Corpuscular Volume 93.5 FL (87-102); Monocytes # 0.2 10*3/uL (0.11-0.8); Monocytes % 8.7 % (1.7-12.7); Neutrophils # 1.3 10*3/uL (1.4-7.4); Neutrophils % 60.5 % (38.7-73.9); Red Blood Count 2.77 MC/CUMM (3.8-5.5); Red Cell Distribution Width 18.2 % (9.3-17.3); White Blood Count 2.1 T/CUMM (4-12)
[2017-01-24 05:12] LABS: Platelet Count 94 T/CUMM (130-400)
[2017-01-24 05:27] LABS: Giant Platelets Few; Hypochromasia 1+; Platelet Estimate Decreased
[2017-01-24 05:28] LABS: Microcytosis Slight
[2017-01-24] MEDS: SALIVA SUBSTITUTE SPRAY 60 ML CAN SWISH/SPIT SCH ×6 (05:34→22:13)
[2017-01-24] MEDS: LEVOTHYROXINE 137 MCG TABLET PO SCH (06:11)
[2017-01-24] MEDS ORDERED: IRON DEXTRAN IV ONE (07:28)
[2017-01-24] MEDS ORDERED: SODIUM CHLORIDE 0.9% IV ONE (07:28)
[2017-01-24] MEDS ORDERED: IRON DEXTRAN 25 MG in SYRINGE 1 EACH IV ONE (07:28)
[2017-01-24] MEDS ORDERED: DEXAMETHASONE INJ 10 MG in SODIUM CHLORIDE 0.9% 50 ML IV ONE (07:29)
[2017-01-24] MEDS ORDERED: diphenhydrAMINE 50 MG/1 ML VIAL IV ONE ×2 (07:29→15:00)
[2017-01-24] MEDS ORDERED: ACETAMINOPHEN 500 MG TABLET PO ONE ×2 (07:29→15:00)
[2017-01-24] MEDS: ONDANSETRON 4 MG/2 ML VIAL IV PRN (08:59)
[2017-01-24] MEDS: MORPHINE 10 MG/1 ML VIAL IV PRN ×2 (09:00→15:25)
[2017-01-24] MEDS: POLYETHYLENE GLYCOL POWDER 17 GM PACK PO SCH (09:03)
[2017-01-24] MEDS: MELOXICAM 7.5 MG TABLET PO SCH ×2 (09:03→22:12)
[2017-01-24] MEDS: FOLIC ACID 1 MG TABLET PO SCH (09:03)
[2017-01-24] MEDS: TRETINOIN 10 MG CAPSULE PO SCH ×2 (09:03→22:18)
[2017-01-24] MEDS: NYSTATIN 500,000 UNIT/5 ML UDCUP SWISH/SWAL SCH ×4 (09:04→22:12)
[2017-01-24] MEDS: PANTOPRAZOLE 40 MG TABLET PO SCH (09:04)
[2017-01-24] MEDS: FUROSEMIDE 20 MG TABLET PO SCH (09:04)
[2017-01-24] MEDS: DEXTROSE 5% IV SCH (11:52)
[2017-01-24] MEDS: ARSENIC TRIOXIDE IV SCH (11:52)
[2017-01-24] MEDS: clonazePAM 0.5 MG TABLET PO SCH (22:11)
[2017-01-24] MEDS: DOXEPIN 25 MG CAPSULE PO SCH (22:11)
[2017-01-24] MEDS: ALPRAZolam 0.25 MG TABLET PO PRN (22:12)
[2017-01-24] MEDS: ESZOPICLONE 3 MG PO SCH (22:15)
[2017-01-24] MEDS: ZALEPLON 5 MG CAPSULE PO SCH (22:18)
[2017-01-25] MEDS: TEMAZEPAM 7.5 MG CAPSULE PO PRN ×2 (01:59→21:46)
[2017-01-25] MEDS: SALIVA SUBSTITUTE SPRAY 60 ML CAN SWISH/SPIT SCH ×6 (02:00→20:03)
[2017-01-25] MEDS: SODIUM CHLORIDE 0.45% 1,000 ML IV SCH (05:51)
[2017-01-25 05:53] LABS: Eosinophils % 0.7 % (0.00-10.9); Hematocrit 24.6 VOL% (35.7-47.0); Hemoglobin 8.6 GM/DL (12.0-16.0); Immature Granulocytes % 0.7 %; Immature Granulocytes Absolute 0.01 #; Lymphocytes # 0.4 10*3/uL (1.4-4.0); Lymphocytes % 23.8 % (21.3-54.2); Mean Corpuscular Hemoglobin 33 PG (27-34); Mean Corpuscular Volume 93.9 FL (87-102); Monocytes # 0.1 10*3/uL (0.11-0.8); Monocytes % 8.6 % (1.7-12.7); Neutrophils % 66.2 % (38.7-73.9); Platelet Count 126 T/CUMM (130-400); Red Blood Count 2.62 MC/CUMM (3.8-5.5); Red Cell Distribution Width 17.8 % (9.3-17.3); White Blood Count 1.5 T/CUMM (4-12)
[2017-01-25 06:27] LABS: Hypochromasia 1+; Lymphocytes 23 % (20-55); Platelet Estimate Normal; Segmented Neutrophils 67 % (50-85); Total Cells Counted 100
[2017-01-25 06:28] LABS: Giant Platelets Few; Microcytosis Slight; Ovalocytes Slight
[2017-01-25 06:37] LABS: Albumin 2.6 G/DL (3.4-5.0); Bilirubin,Total 0.7 MG/DL (0.2-1.0); Magnesium 2.2 MG/DL (1.8-2.4); Osmolality,Calculated 282.7 MOS/KG (273-304); Potassium 3.8 MMOL/L (3.5-5.1); Total Protein 5.8 G/DL (6.4-8.3)
[2017-01-25] MEDS: LEVOTHYROXINE 137 MCG TABLET PO SCH (06:49)
[2017-01-25] MEDS ORDERED: MAGNESIUM SULF RIDER 2 GM in PREMIX 1 EACH IV ONE (07:55)
[2017-01-25] MEDS ORDERED: POTASSIUM CHLORIDE RIDER 10 MEQ in PREMIX 1 EACH IV SCH (08:00)
[2017-01-25] MEDS: MELOXICAM 7.5 MG TABLET PO SCH ×2 (09:11→21:45)
[2017-01-25] MEDS: FOLIC ACID 1 MG TABLET PO SCH (09:11)
[2017-01-25] MEDS: FUROSEMIDE 20 MG TABLET PO SCH (09:11)
[2017-01-25] MEDS: POLYETHYLENE GLYCOL POWDER 17 GM PACK PO SCH (09:11)
[2017-01-25] MEDS: PANTOPRAZOLE 40 MG TABLET PO SCH (09:12)
[2017-01-25] MEDS: NYSTATIN 500,000 UNIT/5 ML UDCUP SWISH/SWAL SCH ×4 (09:12→21:44)
[2017-01-25] MEDS: TRETINOIN 10 MG CAPSULE PO SCH ×2 (09:12→21:46)
[2017-01-25] MEDS: ARSENIC TRIOXIDE IV SCH (11:18)
[2017-01-25] MEDS: DEXTROSE 5% IV SCH (11:18)
[2017-01-25] MEDS: traMADol 50 MG TABLET PO PRN ×2 (11:25→20:03)
[2017-01-25] MEDS: ZALEPLON 5 MG CAPSULE PO SCH (21:44)
[2017-01-25] MEDS: clonazePAM 0.5 MG TABLET PO SCH (21:44)
[2017-01-25] MEDS: DOXEPIN 25 MG CAPSULE PO SCH (21:46)
[2017-01-25] MEDS: ESZOPICLONE 3 MG PO SCH (21:47)
[2017-01-26] MEDS: MORPHINE 10 MG/1 ML VIAL IV PRN (00:39)
[2017-01-26] MEDS: SALIVA SUBSTITUTE SPRAY 60 ML CAN SWISH/SPIT SCH ×5 (03:21→17:36)
[2017-01-26 05:08] LABS: Eosinophils # 0.1 10*3/uL (0.0-0.87); Eosinophils % 4.8 % (0.00-10.9); Hemoglobin 8.5 GM/DL (12.0-16.0); Immature Granulocytes % 0.7 %; Immature Granulocytes Absolute 0.01 #; Lymphocytes # 0.5 10*3/uL (1.4-4.0); Lymphocytes % 33.6 % (21.3-54.2); Mean Corpuscular HGB Conc 35.4 GM/DL (32-36); Mean Corpuscular Hemoglobin 33 PG (27-34); Mean Platelet Volume 11.5 FL (9.6-12.0); Monocytes # 0.3 10*3/uL (0.11-0.8); Monocytes % 19.2 % (1.7-12.7); Neutrophils # 0.6 10*3/uL (1.4-7.4); Neutrophils % 41.7 % (38.7-73.9); Platelet Count 176 T/CUMM (130-400); Red Blood Count 2.58 MC/CUMM (3.8-5.5); Red Cell Distribution Width 18.5 % (9.3-17.3); White Blood Count 1.5 T/CUMM (4-12)
[2017-01-26 05:33] LABS: Band Neutrophils 2 % (0-10); Eosinophils 2 % (0-10); Giant Platelets Few; Hypochromasia 1+; Lymphocytes 39 % (20-55); Microcytosis Slight; Ovalocytes Slight; Platelet Estimate Normal; Segmented Neutrophils 34 % (50-85); Total Cells Counted 100
[2017-01-26] MEDS: LEVOTHYROXINE 137 MCG TABLET PO SCH (07:02)
[2017-01-26] MEDS: ONDANSETRON 4 MG/2 ML VIAL IV PRN (07:11)
[2017-01-26] MEDS: FUROSEMIDE 20 MG TABLET PO SCH (11:14)
[2017-01-26] MEDS: MELOXICAM 7.5 MG TABLET PO SCH (11:14)
[2017-01-26] MEDS: NYSTATIN 500,000 UNIT/5 ML UDCUP SWISH/SWAL SCH ×3 (11:14→17:37)
[2017-01-26] MEDS: POLYETHYLENE GLYCOL POWDER 17 GM PACK PO SCH (11:14)
[2017-01-26] MEDS: PANTOPRAZOLE 40 MG TABLET PO SCH (11:15)
[2017-01-26] MEDS: FOLIC ACID 1 MG TABLET PO SCH (11:15)
[2017-01-26] MEDS: TRETINOIN 10 MG CAPSULE PO SCH (11:15)
[2017-01-26] MEDS: ALPRAZolam 0.25 MG TABLET PO PRN (15:11)
[2017-01-26] MEDS: traMADol 50 MG TABLET PO PRN (15:12)
[2017-01-26] MEDS: ARSENIC TRIOXIDE IV SCH (17:33)
[2017-01-26] MEDS: DEXTROSE 5% IV SCH (17:33)
[2017-01-26 18:37] VITALS: BP 123/78
== END 2017-01-26 19:18 | disposition home or self-care (01) | DRG 838 ==
LOC: N.4E 08:18
PROVIDERS: ADMIT Specialist; ATTEND Specialist